=== PATIENT | female | born 2000 | race Caucasian/White ===

== ENCOUNTER 2023-05-28 22:52 | Emergency (ER) | payer OTHER, SELFPAY ==
--- NOTE | ~2023-05-28 | XR_ITS ---
EXAMINATION: XR FINGER, LEFT CLINICAL INFORMATION: Pain left third digit distal phalanx COMPARISON: None available. TECHNIQUE: 3 views of the left third digit. FINDINGS: The bones and soft tissues are normal. No fracture. Alignment is anatomic. Joint spaces are maintained. XR/XR finger LT min 2V IMPRESSION: Normal finger radiographs.
[2023-05-28 22:53] VITALS: BP 131/74; PULSE 90; RESP 18; TEMP 37.1; O2SAT 96; BMI 21.9
--- OUTSIDE RECORDS SUMMARY | 2023-05-29 00:01 | XMS_ITS | Continuity of Care Document ---
Author Name Unknown Organization [facility] Address [address] [place] [address]- Care Team Providers Care Primer Waterproofing Machine Adjuster Name Role Phone Catrachito ZAFAR, Tiana Neumann Primary Care Physician [facility] - 08/[facility]/21 [facility] [address] [place] [address]- Allergies, Adverse Reactions, Alerts No Known Medication Allergies Substance Reaction Severity Status NKA Active Immunizations Given and Recorded Vaccine Date Status Refusal Reason SARS-CoV-2 (COVID-19) mRNA BNT-162b2 vac 04/06/21 Recorded tetanus/diphtheria/pertussis, acel(Tdap) 07/22/19 Given tetanus/diphtheria/pertussis, acel(Tdap) 03/31/10 Recorded influenza virus vaccine, inactivated 07/22/19 Give n influenza virus vaccine, inactivated 06/19/14 Edouard rded influenza virus vaccine, inactivated 06/30/11 Edouard rded Human Papillomavirus Vaccine 12/18/14 Recorded Human Papillomavirus Vaccine 07/30/14 Recorded Human Papillomavirus Vaccine 06/19/14 Recorded Varicella Virus Vaccine 06/30/11 Recorded Varicella Virus Vaccine 05/15/00 Recorded Poliovirus Vaccine, Inactivated 06/18/03 Recorded Poliovirus Vaccine, Inactivated 05/15/00 Recorded Poliovirus Vaccine, Inactivated 99 Recorded Poliovirus Vaccine, Inactivated 99 Recorded Measles/Mumps/Rubella Virus Vaccine 06/18/03 Recor ded Measles/Mumps/Rubella Virus Vaccine 09/14/01 Recor ded diphtheria/tetanus/pertussis, acel(DTaP) 06/18/03 Recorded diphtheria/tetanus/pertussis, acel(DTaP) 09/14/01 Recorded diphtheria/tetanus/pertussis, acel(DTaP) 99 Recorded diphtheria/tetanus/pertussis, acel(DTaP) 99 Recorded diphtheria/tetanus/pertussis, acel(DTaP) 99 Recorded hepatitis B pediatric vaccine 09/14/01 Recorded hepatitis B pediatric vaccine 02/13/00 Recorded hepatitis B pediatric vaccine 99 Recorded Haemophilus B conjugate (HbOC) vaccine 09/14/01 Re corded Haemophilus B conjugate (HbOC) vaccine 99 Re corded Haemophilus B conjugate (HbOC) vaccine 99 Re corded Haemophilus B conjugate (HbOC) vaccine 99 Re corded pneumococcal 13-valent vaccine 05/28/00 Recorded Medications hydrOXYzine hydrochloride 25 mg oral tablet 1 tablet = 25 mg, By Mouth, 3 times a day, PRN for anxiety, # 40 tablet, 2 Refills, Maintenance, 04/26/21 16:51:00 EDT, Tablet, [id number], Partial fill upon patient request if the prescription is for a schedule II opioid drug., 158, cm, 04/26... Start Date: 04/26/21 Status: Ordered medroxyPROGESTERone 150 mg/mL intramuscular suspension = 150 mg, Intramuscular, Once, Please bring injection in package to primary care nurse appt each month for injection., # 1 mL, 11 Refills, Soft Stop, 08/03/21 8:59:00 EDT, [id number], Partialfill upon patient request if the prescription is fo... Start Date: 08/03/21 Status: Ordered [place] 30 mcg-0.15 mg oral tablet 1 tablet, By Mouth, Daily, # 84 tablet, 3 Refills, Maintenance, 07/27/21 11:05:00 EDT, Tablet, [facility], 1 tablet By Mouth Daily,x84 days, 158, cm, 07/15/21 15:25:00 EDT, Height, 57, kg, 10/07/19 8:45:00 EST, Dry Weight Start Date: 07/27/21 Stop Date: 06/28/22 Status: Ordered Problem List Condition Effective Dates Status Health Status Inform ant Anxiety(Confirmed) Active Depression(Confirmed) Active Family history of congenital anomaly of cardiovascular system(Confirmed) Active hx of Heart palpitations(Confirmed) Active Blood type, Rh negative(Confirmed) Active Social History Social History Type Response Smoking Status Never smoker entered on: 12/22/16 Sex
--- OUTSIDE RECORDS SUMMARY | 2023-05-29 00:01 | XMS_ITS | Continuity of Care Document ---
Author Name Unknown Organization [facility] Address [address] [place] [address]- Care Team Providers Care Horse Show Judge Name Role Phone Catrachito ZAFAR, Tiana Neumann Primary Care Physician [facility]20 - [facility]11/20 [facility] [address] [place] [address]- [facility] Allergies, Adverse Reactions, Alerts No Known Medication Allergies Substance Reaction Severity Status NKA Active Immunizations Given and Recorded Vaccine Date Status Refusal Reason tetanus/diphtheria/pertussis, acel(Tdap) 07/22/19 Given tetanus/diphtheria/pertussis, acel(Tdap) 03/31/10 Recorded influenza virus vaccine, inactivated 07/22/19 Give n influenza virus vaccine, inactivated 06/19/14 Edouard rded Human Papillomavirus Vaccine 12/18/14 Recorded Human Papillomavirus Vaccine 07/30/14 Recorded Human Papillomavirus Vaccine 06/19/14 Recorded Varicella Virus Vaccine 06/30/11 Recorded Varicella Virus Vaccine 05/15/00 Recorded Measles/Mumps/Rubella Virus Vaccine 06/18/03 Recor ded Measles/Mumps/Rubella Virus Vaccine 09/14/01 Recor ded Poliovirus Vaccine, Inactivated 06/18/03 Recorded Poliovirus Vaccine, Inactivated 05/15/00 Recorded Poliovirus Vaccine, Inactivated 99 Recorded Poliovirus Vaccine, Inactivated 99 Recorded diphtheria/tetanus/pertussis, acel(DTaP) 06/18/03 Recorded diphtheria/tetanus/pertussis, acel(DTaP) 09/14/01 Recorded diphtheria/tetanus/pertussis, acel(DTaP) 99 Recorded diphtheria/tetanus/pertussis, acel(DTaP) 99 Recorded diphtheria/tetanus/pertussis, acel(DTaP) 99 Recorded Haemophilus B conjugate (HbOC) vaccine 09/14/01 Re corded Haemophilus B conjugate (HbOC) vaccine 99 Re corded Haemophilus B conjugate (HbOC) vaccine 99 Re corded Haemophilus B conjugate (HbOC) vaccine 99 Re corded hepatitis B pediatric vaccine 09/14/01 Recorded hepatitis B pediatric vaccine 02/13/00 Recorded hepatitis B pediatric vaccine 99 Recorded pneumococcal 13-valent vaccine 05/28/00 Recorded Medications [place] 30 mcg-0.15 mg oral tablet 1 tablet, By Mouth, Daily, # 84 tablet, 3 Refills, Maintenance, 11/18/19 13:25:00 EST, Tablet, [facility], 1 tablet By Mouth Daily,x84 days, 158, cm, 11/18/19 13:02:00 EST, Height, 57, kg, 10/07/19 8:45:00 EST, Dry Weight Start Date: 11/18/19 Stop Date: 10/19/20 Status: Ordered Problem List Condition Effective Dates Status Health Status Inform ant Anxiety(Confirmed) Active Depression(Confirmed) Active Family history of congenital anomaly of cardiovascular system(Confirmed) Active hx of Heart palpitations(Confirmed) Active Blood type, Rh negative(Confirmed) Active Social History Social History Type Response Smoking Status Never smoker entered on: 12/22/16 Sex
--- OUTSIDE RECORDS SUMMARY | 2023-05-29 00:01 | XMS_ITS | Continuity of Care Document ---
Author Name Unknown Organization [facility] Address [address] [place] [address]- Care Team Providers Care Tool Designer Name Role Phone Catrachito WEB DESIGNER DEVELOPER, Tiana Neumann Primary Care Physician [facility] Date(s): 09/05/19 - 11/16/19 [facility] BALANCING MACHINE OPERATOR [address] [place] [address]- [facility] Attending Physician: Paz Goldberg MD Allergies, Adverse Reactions, Alerts No Known Medication [...] Recorded pneumococcal 13-valent vaccine 05/28/00 Recorded Medications Multivitamins By Mouth, Daily, 0 Refills, Maintenance, 02/26/19 10:09:37 EDT Start Date: 02/26/19 Status: Ordered Problem List Condition Effective Dates Status Health Status Inform ant care(Confirmed) Active Anxiety(Confirmed) Active Depression(Confirmed) Active Family history of congenital anomaly of cardiovascular system(Confirmed) Active complicated by umb ilical cord varix, antepartum(Confirmed) Active Abnormal glucose tolerance i n (Confirmed) Active hx of Heart palpitations(Confirmed) Active (Confirmed) 1 12/15/18 Active (Confirmed) Active Blood type, Rh negative(Confirmed) Active 1chart review Social History Social History Type Response Smoking Status Never smoker entered on: 12/22/16 Sex
--- OUTSIDE RECORDS SUMMARY | 2023-05-29 00:01 | XMS_ITS | Continuity of Care Document ---
Author Name Unknown Organization [facility] Address [address] [place] [address]- Care Team Providers Care Watch Supervisor Name Role Phone Catrachito ZAFAR, Tiana Neumann Primary Care Physician [facility]): 12/21/20 - 01/20/21 [facility] [address] [place] [address]- Allergies, Adverse Reactions, Alerts No Known Medication [...] corded pneumococcal 13-valent vaccine 05/28/00 Recorded Medications Megan 30 mcg-0.15 mg oral tablet 1 tablet, By Mouth, Daily, # 84 tablet, 3 Refills, Maintenance, 12/21/20 14:36:00 EST, Tablet, [facility], 1 tablet By Mouth Daily,x84 days, 158, cm, 05/13/20 9:06:00 EDT, Height, 57, kg, 10/07/19 8:45:00 EST, Dry Weight Start Date: 12/21/20 Stop Date: 11/22/21 Status: Ordered Problem List Condition Effective Dates Status Health Status Inform ant Anxiety(Confirmed) Active Depression(Confirmed) Active Family history of congenital anomaly of cardiovascular system(Confirmed) Active hx of Heart palpitations(Confirmed) Active Blood type, Rh negative(Confirmed) Active Social History Social History Type Response Smoking Status Never smoker entered on: 12/22/16 Sex
--- OUTSIDE RECORDS SUMMARY | 2023-05-29 00:01 | XMS_ITS | Continuity of Care Document ---
Author Name Unknown Organization [facility] Address [address] [place] [address]- Care Team Providers Care Food Expeditor Name Role Phone Catrachito ZAFAR, Tiana Neumann Primary Care Physician [facility] Date[facility]s): 10/17/19 - 10/27/[facility] [address] [place] [address]- [facility] Attending Physician: Denia Anaya Admitting Physician: Denia Anaya Referring Physician: AdmtrDenia Allergies, Adverse Reactions, Alerts No Known Medication [...]
--- OUTSIDE RECORDS SUMMARY | 2023-05-29 00:01 | XMS_ITS | Continuity of Care Document ---
Author Name Unknown Organization [facility] Address [address] [place] [address]- Care Team Providers Care Inspector Set Up And Lay Out Name Role Phone Catrachito POST SECONDARY PROFESSIONAL, Tiana Neumann Primary Care Physician [facility] Date(s): 11/18/19 - 11/28/19 [facility] PEELED POTATO INSPECTOR [address] [place] [address]- [facility] Attending Physician: Denia Anaya Admitting Physician: Denia [...] Recorded pneumococcal 13-valent vaccine 05/28/00 Recorded Medications Megan [...]
--- OUTSIDE RECORDS SUMMARY | 2023-05-29 00:02 | XMS_ITS | Continuity of Care Document ---
Author Name Unknown Organization [facility] Address [address] [place] [address]- Care Team Providers Care Stenotypist Name Role Phone Catrachito ZAFAR, Tiana Neumann Primary Care Physician [facility]s): 05/17/20 - 06/16/20 [facility] [address] [place] [address]- [facility] Allergies, Adverse Reactions, Alerts No Known Medication [...] Recorded pneumococcal 13-valent vaccine 05/28/00 Recorded Medications [place] 30 mcg-0.15 mg oral tablet 1 tablet, [...]
--- OUTSIDE RECORDS SUMMARY | 2023-05-29 00:02 | XMS_ITS | Continuity of Care Document ---
Author Name Unknown Organization [facility] Address [address] [place] [address]- Care Team Providers Care Railroad Switchman Name Role Phone Catrachito ZAFAR, Tiana Neumann Primary Care Physician [facility]s): 09/19/19 - 11/16/19 [facility] [address] [place] [address]- [facility] Attending Physician: Not on Staff, Attending MD Referring Physician: Paz Goldberg MD Allergies, Adverse Reactions, [...]
--- OUTSIDE RECORDS SUMMARY | 2023-05-29 00:02 | XMS_ITS | Continuity of Care Document ---
Author Name Unknown Organization [facility] Address [address] [place] [address]- Care Team Providers Care Admissions Supervisor Name Role Phone Catrachito ZAFAR, Tiana Neumann Primary Care Physician Unava ilable [place] [facility] Date(s): 04/24/22 - 05/01/22 [facility] [address] [place] [address]- Encounter Diagnosis URI (upper respiratory infection)(Discharge Diagnosis) - 04/24/22 Bilateral conjunctivitis(Discharge Diagnosis) - 04/24/22 Attending Physician: Natalie Mejia Referring Physician: Tiana Winston NP Allergies, Adverse Reactions, Alerts No Known Allergies Immunizations Given and Recorded Vaccine Date Status [...] corded pneumococcal 13-valent vaccine 05/28/00 Recorded Medications Depo-Provera Contraceptive 150 mg/mL intramuscular suspension 1 mL = 150 mg, Intramuscular, Every 3 months, # 1 mL, 0 Refills, Maintenance, 02/27/22 9:02:00 EDT,Suspension, [facility]/pharmacy #[id number], Partial fill upon patient request if the prescription is for a schedule II opioid drug., 158, cm, 12/09/21 9:34:00 EST,... Start Date: 02/27/22 Status: Ordered Depo-Provera Contraceptive 150 mg/mL intramuscular suspension 1 mL = 150 mg, Intramuscular, Every 3 months, # 1 mL, 1 Refills, Maintenance, 02/27/22 10:52:00 EDT, Suspension, [facility]/pharmacy #[id number], Partial fill upon patient request if the prescription is for a schedule II opioid drug., 158, cm, 12/09/21 9:34:00 EST... Start Date: 02/27/22 Stop Date: 08/26/22 Status: Ordered erythromycin 0.5% ophthalmic ointment See Instructions, APPLY 1/2 INCHESIN BOTH EYES, 2 TIMES A DAY,X10 DAYS, # 3.5 Gm, 0 Refills, [id number], 10, APPLY 1/2 INCHESIN BOTH EYES, 2 TIMES A DAY,X10 DAYS, 158, cm, 04/24/22 10:43:00 EDT,Height, 44.8, kg, 02/24/22 11:27:00 EDT, Dry Weight Start Date: 05/01/22 Status: Ordered hydrOXYzine hydrochloride 25 mg oral tablet 1 tablet = 25 mg, By Mouth, 3 times a day, PRN for anxiety, # 40 tablet, 2 Refills, Maintenance, 04/26/21 16:51:00 EDT, Tablet, [facility]/pharmacy #2024, Partial fill upon patient request if the prescription is for a schedule II opioid drug., 158, cm, 04/26... Start Date: 04/26/21 Status: Ordered Megan 30 mcg-0.15 mg oral tablet 1 tablet, By Mouth, Daily, # 84 tablet, 3 Refills, Maintenance, 12/09/21 9:59:00 EST, Tablet, [facility]/pharmacy #2024, 1 tablet By Mouth Daily,x84 days, 158, cm, 12/09/21 9:34:00 EST, Height Start Date: 12/09/21 Stop Date: 11/10/22 Status: Ordered Problem List Condition Effective Dates Status Health Status Inform ant Anxiety(Confirmed) Active Depression(Confirmed) Active Family history of congenital anomaly of cardiovascular system(Confirmed) Active hx of Heart palpitations(Confirmed) Active Blood type, Rh negative(Confirmed) Active Diagnosis Diagnosis Type Effective Dates Health Status Clinical Service Informant URI (upper respiratory infection) Discharge Diagnosis 04/24/22 Bilateral conjunctivitis Discharge Diagnosis 04/24/22 Vital Signs Most recent to oldest [Reference Range]: 1 Height 158 cm (04/24/22 10:43 AM) Oxygen Saturation [94-100 %] 99 % (04/24/22 10:43 AM) Pulse Rate [55-90 bpm] 105 bpm *H* (04/24/22 10:43 AM) Blood Pressure [90-138/55-84 mm Hg] 100/ 70mm Hg (04/24/22 10:43 AM) Respiratory Rate [16-30 br/min] 16 br/mi n (04/24/22 10:43 AM) Temperature [96.8-100.4 DegF] 97.9 DegF (04/24/22 10:43 AM) Mode of Delivery (Oxygen) Room air (04/24/22 10:43 AM) Blood pressure sites Arm, right (04/24/22 10:43 AM) Temperature Route Temporal (04/24/22 10:43 AM) Social History Social History Type Response Smoking Status Never smoker entered on: 12/22/16 Sex
--- OUTSIDE RECORDS SUMMARY | 2023-05-29 00:02 | XMS_ITS | Continuity of Care Document ---
Author Name Unknown Organization [facility] Address [address] [place] [address]- Care Team Providers Care Dermatology Technician Name Role Phone Catrachito ZAFAR, Tiana Neumann Primary Care Physician [place] [facility] [place] 11/28/21 - 12/28/21 [facility] [address] [place] [address]- Allergies, Adverse Reactions, Alerts No Known Allergies [...] 2 Refills, Maintenance, 04/26/21 16:51:00 EDT, Tablet, [facility]/pharmacy #2025, Partial fill upon patient request if the prescription is for a schedule II opioid drug., 158, cm, 04/26... Start Date: 04/26/21 Status: Ordered Megan 30 mcg-0.15 mg oral tablet 1 tablet, By Mouth, Daily, # 84 tablet, 3 Refills, Maintenance, 12/09/21 9:59:00 EST, Tablet, [facility], 1 tablet By [...]
--- OUTSIDE RECORDS SUMMARY | 2023-05-29 00:02 | XMS_ITS | Continuity of Care Document ---
Author Name Unknown Organization [facility] Address [address] [place] [address]- Care Team Providers Care Paid Search Marketing Analyst Name Role Phone Catrachito ZAFAR, Tiana Neumann Primary Care Physician [facility]): 05[facility]16[facility]21 - 06/15/21 [facility] [address] [place] [address]- Allergies, Adverse Reactions, Alerts No Known Medication [...] Refills, Maintenance, 04/26/21 16:51:00 EDT, Tablet, [facility], Partial fill upon patient request if the prescription is for a schedule II opioid drug., 158, cm, 04/26... Start Date: 04/26/21 Status: Ordered [place] 30 mcg-0.15 mg oral tablet 1 tablet, By Mouth, Daily, # 84 tablet, 3 Refills, Maintenance, 05/17/21 10:24:00 EDT, Tablet, [facility], 1 tablet By Mouth Daily,x84 days, 158, cm, 05/11/21 8:04:00 EDT, Height, 57, kg, 10/07/19 8:45:00 EST, Dry Weight Start Date: 05/17/21 Stop Date: 04/18/22 Status: Ordered Problem List Condition Effective Dates Status Health Status Inform ant Anxiety(Confirmed) Active Depression(Confirmed) Active Family history of congenital anomaly of cardiovascular system(Confirmed) Active hx of Heart palpitations(Confirmed) Active Blood type, Rh negative(Confirmed) Active Social History Social History Type Response Smoking Status Never smoker entered on: 12/22/16 Sex
--- OUTSIDE RECORDS SUMMARY | 2023-05-29 00:02 | XMS_ITS | Continuity of Care Document ---
Author Name Unknown Organization [facility] Address [address] [place] [address]- Care Team Providers Care Executive Asst Name Role Phone Catrachito ZAFAR, Tiana Neumann Primary Care Physician Unava ilable [facility]s): 05/03/22 - 08/31/22 [facility] [address] [place] [address]- Attending Physician: Not on Staff, Attending MD Allergies, Adverse Reactions, Alerts No Known Allergies [...] mL, 0 Refills, Maintenance, 02/27/22 9:02:00 EDT,Suspension, [facility]/pharmacy #[id number], Partial fill upon patient request if the prescription is for a schedule II opioid drug., 158, cm, 12/09/21 9:34:00 EST,... Start Date: 02/27/22 Status: Ordered Depo-Provera Contraceptive 150 mg/mL intramuscular suspension 1 mL = 150 mg, Intramuscular, Every 3 months, # 1 mL, 1 Refills, Maintenance, 02/27/22 10:52:00 EDT, Suspension, [facility]/pharmacy #[id number], Partial fill upon patient request if the prescription is for a schedule II opioid drug., 158, cm, 12/09/21 9:34:00 EST... Start Date: 02/27/22 Stop Date: 08/26/22 Status: Ordered erythromycin 0.5% ophthalmic ointment See Instructions, APPLY 1/2 INCHESIN BOTH EYES, 2 TIMES A DAY,X10 DAYS, # 3.5 Gm, 0 Refills, [facility] [id number], 10, APPLY 1/2 INCHESIN BOTH EYES, 2 [...] Refills, Maintenance, 12/09/21 9:59:00 EST, Tablet, [facility], 1 tablet By Mouth Daily,x84 days, 158, cm, 12/09/21 9:34:00 EST, Height Start Date: 12/09/21 Stop Date: 11/10/22 Status: Ordered Problem List Condition Confirmation Course Effective Dates Status H ealth Status Informant Anxiety Confirmed Active Depression Confirmed Active Family history of congenital anomaly of cardiovascular system Confirmed Active hx of Heart palpitations Confirmed Active Blood type, Rh negative Confirmed Active Social History Social History Type Response Smoking Status Never smoker entered on: 12/22/16 Sex Patient Care team information Care Team Personnel Name: Catrachito ZAFAR, Tiana Neumann Position: [facility] PCO Associate Professional Member Role: PCP Care Team Related Persons Name: MADAN WALTERS Address: [address] Name: HARRISON WALTERS Address: [address] Name: SHAE REYNOLDS Address: [employer] Address: home [address] [place] [id number] [place]
--- OUTSIDE RECORDS SUMMARY | 2023-05-29 00:02 | XMS_ITS | Continuity of Care Document ---
Author Name Unknown Organization [facility] Address [address] [place] [address]- Care Team Providers Care Eyelet Riveter Name Role Phone Catrachito ZAFAR, Tiana Neumann Primary Care Physician [facility]20 - 06/12/20 [facility] [address] [place] [address]- [facility] Attending Physician: Denia Anaya Admitting Physician: AdmtrDenia Referring Physician: Admtr, Ar8 Allergies, Adverse Reactions, Alerts No Known Medication [...]
--- OUTSIDE RECORDS SUMMARY | 2023-05-29 00:02 | XMS_ITS | Continuity of Care Document ---
Author Name Unknown Organization [facility] Address [address] [place] [address]- Care Team Providers Care Desktop Administrator Name Role Phone Maddie Rouse NP Primary Care Physician [phone] [place] [facility] [place] 11/14/22 - 12/14/22 [facility] [address] [place] [address]- Attending Physician: Denia Anaya Admitting Physician: AdmDenia claire Referring Physician: AdmtrDenia Allergies, Adverse Reactions, Alerts No Known Allergies [...] mL, 0 Refills, Maintenance, 02/27/22 9:02:00 EDT,Suspension, [facility]/pharmacy #[id number], Partial fill upon patient request if the prescription is for a schedule II opioid drug., 158, cm, 12/09/21 9:34:00 EST,... Start Date: 02/27/22 Status: Ordered Depo-Provera Contraceptive 150 mg/mL intramuscular suspension 1 mL = 150 mg, Intramuscular, Every 3 months, # 1 mL, 1 Refills, Maintenance, 02/27/22 10:52:00 EDT, Suspension, [facility]/pharmacy #[id number], Partial fill upon patient request if the prescription is for a schedule II opioid drug., 158, cm, 12/09/21 9:34:00 EST... Start Date: 02/27/22 Stop Date: 08/26/22 Status: Ordered erythromycin 0.5% ophthalmic ointment See Instructions, APPLY 1/2 INCHESIN BOTH EYES, 2 TIMES A DAY,X10 DAYS, # 3.5 Gm, 0 Refills, [facility] 527[facility], 10, APPLY 1/2 INCHESIN BOTH EYES, 2 [...] Status Never smoker entered on: 12/22/16 Sex Note * Event Display: Non BH Lab Results Authored Date: * Event Display: Non BH Lab Results Authored Date: Patient Care team information Care Team Personnel Name: Maddie Rouse NP Position: [facility] Outreach Member Role: PCP Address: Address: [address] [place] [address] [facility] [place] [place] [address] Care Team Related Persons Name: MADAN WALTERS Address: home [address], [place] Name: HARRISON WALTERS Address: home [address], [place] Name: SHAE REYNOLDS Address: [employer] Address: home [address] [place] [address]
--- OUTSIDE RECORDS SUMMARY | 2023-05-29 00:02 | XMS_ITS | Continuity of Care Document ---
Author Name Unknown Organization [facility] Address [address] [place] [address]- Care Team Providers Care Lard Mixer Name Role Phone Catrachito DIGITAL MARKETING CONSULTANT, Tiana Neumann Primary Care Physician Unava ilable [facility] - 06/15/[address] [facility] [address] [place] [address]- Allergies, Adverse Reactions, Alerts No Known Allergies [...] mL, 0 Refills, Maintenance, 02/27/22 9:02:00 EDT,Suspension, [facility]/pharmacy #[id number], Partial fill upon patient request if the prescription is for a schedule II opioid drug., 158, cm, 12/09/21 9:34:00 EST,... Start Date: 02/27/22 Status: Ordered Depo-Provera Contraceptive 150 mg/mL intramuscular suspension 1 mL = 150 mg, Intramuscular, Every 3 months, # 1 mL, 1 Refills, Maintenance, 02/27/22 10:52:00 EDT, Suspension, [facility]/pharmacy #[id number], Partial fill upon patient request if the prescription is for a schedule II opioid drug., 158, cm, 12/09/21 9:34:00 EST... Start Date: 02/27/22 Stop Date: 08/26/22 Status: Ordered erythromycin 0.5% ophthalmic ointment See Instructions, APPLY 1/2 INCHESIN BOTH EYES, 2 TIMES A DAY,X10 DAYS, # 3.5 Gm, 0 Refills, [facility] STORE 83240, 10, APPLY 1/2 INCHESIN BOTH EYES, 2 [...] Status Never smoker entered on: 12/22/16 Sex Care Team Personnel Name: Catrachito ZAFAR, Tiana Neumann
--- OUTSIDE RECORDS SUMMARY | 2023-05-29 00:02 | XMS_ITS | Continuity of Care Document ---
Author Name Unknown Organization [facility] Address [address] [place] [address]- Care Team Providers Care Equipment Detailer Name Role Phone Catrachito PRESS SET UP PERSON, Tiana Neumann Primary Care Physician [facility]): 12[facility]07/21 - 01/06/22 [facility] [address] [place] [address]- Allergies, Adverse Reactions, Alerts No Known Allergies [...] 2 Refills, Maintenance, 04/26/21 16:51:00 EDT, Tablet, [facility]/pharmacy #[id number], Partial fill upon patient request if the prescription is for a schedule II opioid drug., 158, cm, 04/26... Start Date: 04/26/21 Status: Ordered [place] 30 mcg-0.15 mg oral tablet 1 tablet, [...]
--- OUTSIDE RECORDS SUMMARY | 2023-05-29 00:02 | XMS_ITS | Continuity of Care Document ---
Author Name Unknown Organization [facility] Address [address] [place] [address]- Care Team Providers Care Director Of Federal Sales Name Role Phone Maddie Rouse NP Primary Care Physician [id number] Date[facility]07[facility]23 - 05/27/23 [facility] [address] [place] [address]- Attending Physician: Not on Staff, Attending MD [...] mL, 0 Refills, Maintenance, 02/27/22 9:02:00 EDT,Suspension, [facility]/pharmacy #[id number], Partial fill upon patient request if the prescription is for a schedule II opioid drug., 158, cm, 12/09/21 9:34:00 EST,... Start Date: 02/27/22 Status: Ordered Depo-Provera Contraceptive 150 mg/mL intramuscular suspension 1 mL = 150 mg, Intramuscular, Every 3 months, # 1 mL, 1 Refills, Maintenance, 02/07/23 15:55:00 EDT, Suspension, [facility]/pharmacy #[id number], Partial fill upon patient request if the prescription is for a schedule II opioid drug., 158, cm, 11/22/22 16:52:00 ES... Start Date: 02/07/23 Stop Date: 08/06/23 Status: Ordered erythromycin 0.5% ophthalmic ointment See Instructions, APPLY 1/2 INCHESIN BOTH EYES, 2 TIMES A DAY,X10 DAYS, # 3.5 Gm, 0 Refills, [facility] STORE 35227, 10, APPLY 1/2 INCHESIN BOTH EYES, 2 TIMES A DAY,X10 DAYS, 158malika, 04/24/22 10:43:00 EDT,Height, 44.8, kg, 02/24/22 11:27:00 [...] Team Personnel Name: Maddie Rouse NP Position: [facility] Outreach Member Role: PCP Address: Address: [address] [place] [address] [facility] [place], [place] [address] Care Team Related Persons Name: MADAN WALTERS Address: home [address] [place] [address] Name: HARRISON WALTERS Address: home [address] [place] [address] Name: SHAE REYNOLDS Address: [place] Address: [place] [address]
--- OUTSIDE RECORDS SUMMARY | 2023-05-29 00:02 | XMS_ITS | Continuity of Care Document ---
Author Name Unknown Organization [facility] Address [address] [place] [address]- Care Team Providers Care Estimator Lumber Name Role Phone Catrachito AUTOMOTIVE PAINTER, Tiana Neumann Primary Care Physician Unava ilable [facility]s): 02/24/22 - 03/26/22 [facility] [address] [place] [address]- Allergies, Adverse Reactions, Alerts No Known Allergies [...] mL, 0 Refills, Maintenance, 02/27/22 9:02:00 EDT,Suspension, [facility]/pharmacy #[id number], Partial fill upon patient request if the prescription is for a schedule II opioid drug., 158, malika, 12/09/21 9:34:00 EST,... Start Date: 02/27/22 Status: Ordered Depo-Provera Contraceptive 150 mg/mL intramuscular suspension 1 mL = 150 mg, Intramuscular, Every 3 months, # 1 mL, 1 Refills, Maintenance, 02/27/22 10:52:00 EDT, Suspension, [facility]/pharmacy #[id number], Partial fill upon patient request if the prescription is for a schedule II opioid drug., 158, malika, 12/09/21 9:34:00 EST... Start Date: 02/27/22 Stop Date: 08/26/22 Status: Ordered hydrOXYzine hydrochloride 25 mg oral tablet 1 tablet = 25 mg, By Mouth, 3 times a day, PRN for anxiety, # 40 tablet, 2 Refills, Maintenance, 04/26/21 16:51:00 EDT, Tablet, [facility]/pharmacy #2020, Partial fill upon patient request if the prescription is for a schedule II opioid drug., 158, malika, 04/26... Start Date: 04/26/21 Status: Ordered [place] 30 mcg-0.15 mg oral tablet 1 tablet, By Mouth, Daily, # 84 tablet, 3 Refills, Maintenance, 12/09/21 9:59:00 EST, Tablet, [facility], 1 tablet By Mouth Daily,x84 days, 158, [...]
--- OUTSIDE RECORDS SUMMARY | 2023-05-29 00:02 | XMS_ITS | Continuity of Care Document ---
Author Name Unknown Organization [facility] Address [address] [place] [address]- Care Team Providers Care General Ledger Bookkeeper Name Role Phone Catrachito ZAFAR, Tiana Neumann Primary Care Physician [facility] Date[facility]s): 03/04/21 - 04/03/21 [facility] [address] [place] [address]- Allergies, Adverse Reactions, Alerts No Known Medication [...] corded pneumococcal 13-valent vaccine 05/28/00 Recorded Medications [place] 30 mcg-0.15 mg oral tablet 1 tablet, By Mouth, Daily, # 84 tablet, 3 Refills, Maintenance, 03/04/21 13:32:00 EDT, Tablet, [id number], 1 tablet By Mouth Daily,x84 days, 158, cm, 05/13/20 9:06:00 EDT, Height, 57, kg, 10/07/19 8:45:00 EST, Dry Weight Start Date: 03/04/21 Stop Date: 02/03/22 Status: Ordered Problem List Condition Effective Dates Status Health Status Inform ant Anxiety(Confirmed) Active Depression(Confirmed) Active Family history of congenital anomaly of cardiovascular system(Confirmed) Active hx of Heart palpitations(Confirmed) Active Blood type, Rh negative(Confirmed) Active Social History Social History Type Response Smoking Status Never smoker entered on: 12/22/16 Sex
--- OUTSIDE RECORDS SUMMARY | 2023-05-29 00:03 | XMS_ITS | Continuity of Care Document ---
Author Name Unknown Organization [facility] Address [address] [place] [address]- Care Team Providers Care Taping Foreman Name Role Phone Maddie Rouse NP Primary Care Physician [phone] [id number] Date(s): 11/22/22 - 11/29/22 [facility] [address] [place] [address]- Attending Physician: Not on Staff, Attending MD [...] mL, 0 Refills, Maintenance, 02/27/22 9:02:00 EDT,Suspension, [facility]/pharmacy #[id number], Partial fill upon patient request if the prescription is for a schedule II opioid drug., 158, cm, 12/09/21 9:34:00 EST,... Start Date: 02/27/22 Status: Ordered Depo-Provera Contraceptive 150 mg/mL intramuscular suspension 1 mL = 150 mg, Intramuscular, Every 3 months, # 1 mL, 1 Refills, Maintenance, 02/27/22 10:52:00 EDT, Suspension, [facility]/pharmacy #[id number], Partial fill upon patient request if the prescription is for a schedule II opioid drug., 158, cm, 12/09/21 9:34:00 EST... Start Date: 02/27/22 Stop Date: 08/26/22 Status: Ordered erythromycin 0.5% ophthalmic ointment See Instructions, APPLY 1/2 INCHESIN BOTH EYES, 2 TIMES A DAY,X10 DAYS, # 3.5 Gm, 0 Refills, [facility] STORE 35355, 10, APPLY 1/2 INCHESIN BOTH EYES, 2 [...] Active Blood type, Rh negative Confirmed Active Vital Signs Most recent to oldest [Reference Range]: 1 Height 158 cm (11/22/22 4:52 PM) Weight 50.4 kg (11/22/22 4:52 PM) Body Mass Index [18.5-24.99 kg/m2] 20.19 kg/m2 (11/22/22 4:52 PM) Blood Pressure [90-138/55-84 mm Hg] 108/ 64mm Hg (11/22/22 4:52 PM) Blood pressure sites Arm, left (11/22/22 4:52 PM) Weight Obtained Via Standing scale (11/22/22 4:52 PM) Social History Social History Type Response Smoking Status Never smoker entered on: 12/22/16 Sex Patient Care team information Care Team Personnel Name: Maddie Rouse NP Position: S Outreach Member Role: PCP Address: Address: [address] [place] [address] [place] [address]- Care Team Related Persons Name: MADAN WALTERS Address: home [address] [place], [place] Name: HARRISON WALTERS Address: home [address] [place], [place] Name: SHAE REYNOLDS Address: [place] Address: home [address] [place] [address]
--- OUTSIDE RECORDS SUMMARY | 2023-05-29 00:03 | XMS_ITS | Continuity of Care Document ---
Author Name Unknown Organization [facility] Address [address] [place] [address]- Care Team Providers Care Public Utilities Sales Representative Name Role Phone Maddie Rouse NP Primary Care Physician Encounter [place] Date(s): 04/27/23 - 05/27/23 [facility] [address] [place] [address]- Attending Physician: AdmDenia claire Admitting Physician: AdmtrDenia Referring Physician: Admtr, ArAl Allergies, Adverse Reactions, Alerts No Known Allergies [...] mL, 0 Refills, Maintenance, 02/27/22 9:02:00 EDT,Suspension, [facility]/pharmacy #[id number], Partial fill upon patient request if the prescription is for a schedule II opioid drug., 158, cm, 12/09/21 9:34:00 EST,... Start Date: 02/27/22 Status: Ordered Depo-Provera Contraceptive 150 mg/mL intramuscular suspension 1 mL = 150 mg, Intramuscular, Every 3 months, # 1 mL, 1 Refills, Maintenance, 02/07/23 15:55:00 EDT, Suspension, [facility]/pharmacy #[id number], Partial fill upon patient request if the prescription is for a schedule II opioid drug., 158, cm, 11/22/22 16:52:00 ES... Start Date: 02/07/23 Stop Date: 08/06/23 Status: Ordered erythromycin 0.5% ophthalmic ointment See Instructions, APPLY 1/2 INCHESIN BOTH EYES, 2 TIMES A DAY,X10 DAYS, # 3.5 Gm, 0 Refills, [facility] STORE 15700, 10, APPLY 1/2 INCHESIN BOTH EYES, 2 [...] Team Personnel Name: Maddie Rouse NP Position: [facility] Outreach Member Role: PCP Address: Address: [address] [place] [address] [place] [address]- Care Team Related Persons Name: MADAN WALTERS Address: home [address] [place], [place] Name: HARRISON WALTERS Address: home [address] [place], [place] Name: SHAE REYNOLDS Address: [place] Address: home [address] [place] [address] [place]
--- OUTSIDE RECORDS SUMMARY | 2023-05-29 00:03 | XMS_ITS | Continuity of Care Document ---
Author Name Unknown Organization [facility] Address [address] [place] [address]- Care Team Providers Care Acid Splicer Name Role Phone Catrachito ZAFAR, Tiana Neumann Primary Care Physician [facility]s): 09/15/20 - 10/15/20 [facility] [address] [place] [address]- Allergies, Adverse Reactions, Alerts No Known Medication [...] Daily, # 84 tablet, 3 Refills, Maintenance, 09/30/20 8:37:00 EST, Tablet, [id number], 1 tablet By Mouth Daily,x84 days, 158, cm, 05/13/20 9:06:00 EDT, Height, 57, kg, 10/07/19 8:45:00 EST, Dry Weight Start Date: 09/30/20 Stop Date: 09/01/21 Status: Ordered Problem List Condition Effective Dates Status Health Status Inform ant Anxiety(Confirmed) Active Depression(Confirmed) Active Family history of congenital anomaly of cardiovascular system(Confirmed) Active hx of Heart palpitations(Confirmed) Active Blood type, Rh negative(Confirmed) Active Social History Social History Type Response Smoking Status Never smoker entered on: 12/22/16 Sex
--- OUTSIDE RECORDS SUMMARY | 2023-05-29 00:03 | XMS_ITS | Continuity of Care Document ---
Author Name Unknown Organization [facility] Address [address] [place] [address]- Care Team Providers Care Dean Of Men Name Role Phone Catrachito ZAFAR, Tiana Neumann Primary Care Physician [facility]s): 11/24/21 - 12/24/21 [facility] [address] [place], [place] [address] Allergies, Adverse Reactions, Alerts No Known Allergies [...] 2 Refills, Maintenance, 04/26/21 16:51:00 EDT, Tablet, [facility]/pharmacy #[id number], Partial fill upon patient request if [...]
--- OUTSIDE RECORDS SUMMARY | 2023-05-29 00:03 | XMS_ITS | Continuity of Care Document ---
Author Name Unknown Organization [facility] Address [address] [place] [address]- Care Team Providers Care Shell Sorter Name Role Phone Catrachito ZAFAR, Tiana Neumann Primary Care Physician Encounter [facility] Date(s): 08/03/21 - 09/23/21 [facility] [address] [place] [address]- Attending Physician: Not on Staff, Attending MD [...] is fo... Start Date: 08/03/21 Status: Ordered [place] 30 mcg-0.15 mg oral tablet 1 tablet, By Mouth, Daily, # 84 tablet, 3 Refills, Maintenance, 09/13/21 9:26:00 EST, Tablet, [facility], 1 tablet By Mouth Daily,x84 days, 158, cm, 08/03/21 8:38:00 EDT, Height, 57, kg, 10/07/19 8:45:00 EST, Dry Weight Start Date: 09/13/21 Stop Date: 08/15/22 Status: Ordered Problem List Condition Effective Dates Status Health Status Inform ant Anxiety(Confirmed) Active Depression(Confirmed) Active Family history of congenital anomaly of cardiovascular system(Confirmed) Active hx of Heart palpitations(Confirmed) Active Blood type, Rh negative(Confirmed) Active Social History Social History Type Response Smoking Status Never smoker entered on: 12/22/16 Sex
--- OUTSIDE RECORDS SUMMARY | 2023-05-29 00:03 | XMS_ITS | Continuity of Care Document ---
Author Name Unknown Organization [facility] Address [address] [place] [address]- Care Team Providers Care Pulpwood Cutter Name Role Phone Catrachito ZAFAR, Tiana Neumann Primary Care Physician [facility]s): 09/09/21 - 10/09/21 [facility] [address] [place] [address]- Allergies, Adverse Reactions, Alerts No Known Medication [...] is fo... Start Date: 08/03/21 Status: Ordered [place] 30 mcg-0.15 mg oral tablet 1 tablet, By Mouth, Daily, # 84 tablet, 3 Refills, Maintenance, 09/13/21 9:26:00 EST, Tablet, [facility]/pharmacy #2024, 1 tablet By Mouth Daily,x84 days, [...]
--- OUTSIDE RECORDS SUMMARY | 2023-05-29 00:03 | XMS_ITS | Continuity of Care Document ---
Author Name Unknown Organization [facility] Address [address] [place] [address]- Care Team Providers Care Meat Specialist Name Role Phone Catrachito ZAFAR, Tiana Neumann Primary Care Physician [facility]counter [facility] Date(s): 12/09/21 - 01/08/22 [facility] [address] [place] [address]- Attending Physician: Denia Anaya Admitting Physician: AdmDenia [...]
--- OUTSIDE RECORDS SUMMARY | 2023-05-29 00:03 | XMS_ITS | Continuity of Care Document ---
Author Name Unknown Organization [facility] Address [address] [place] [address]- Care Team Providers Care Renewable Energy Consultant Name Role Phone Catrachito ZAFAR, Tiana Neumann Primary Care Physician [facility] Date[facility]s): 07/27/21 - 08/26/21 [facility] [address] [place] [address]- Allergies, Adverse Reactions, Alerts No Known Medication [...]
--- OUTSIDE RECORDS SUMMARY | 2023-05-29 00:03 | XMS_ITS | Continuity of Care Document ---
Author Name Unknown Organization [facility] Address [address] [place] [address]- Care Team Providers Care Analytics Consultant Name Role Phone Catrachito ZAFAR, Tiana Neumann Primary Care Physician [facility] Date[facility]s): 05/12/20 - 06/11/20 [facility] [address] [place] [address]- [facility] Allergies, Adverse Reactions, Alerts No [...] Recorded pneumococcal 13-valent vaccine 05/28/00 Recorded Medications [place] 30 mcg-0.15 mg oral tablet 1 tablet, [...]
--- OUTSIDE RECORDS SUMMARY | 2023-05-29 00:03 | XMS_ITS | Continuity of Care Document ---
Author Name Unknown Organization [facility] Address [address] [place] [address]- Care Team Providers Care Rotary Shear Cutter Name Role Phone Catrachito ZAFAR, Tiana Neumann Primary Care Physician [facility]s): 07/28/21 - 08/27/21 [facility] [address] [place] [address]- Allergies, Adverse Reactions, Alerts No Known Medication [...]
--- OUTSIDE RECORDS SUMMARY | 2023-05-29 00:03 | XMS_ITS | Continuity of Care Document ---
Author Name Unknown Organization [facility] Address [address] [place] [address]- Care Team Providers Care Rolloff Truck Driver Name Role Phone Catrachito ZAFAR, Tiana Neumann Primary Care Physician [facility] Date(s): 03/16/21 - 04/15/21 [facility] [address] [place] [address]- Allergies, Adverse Reactions, Alerts No Known Medication [...]
--- OUTSIDE RECORDS SUMMARY | 2023-05-29 00:03 | XMS_ITS | Continuity of Care Document ---
Author Name Unknown Organization [facility] Address [address] [place] [address]- Care Team Providers Care Hook And Eye Sewing Machine Operator Name Role Phone Catrachito ASSOCIATE PRODUCER, Tiana Neumann Primary Care Physician Unava ilable [facility]counter [facility] Date(s): 04/24/22 - 05/24/22 [facility] [address] [place] [address]- Allergies, Adverse Reactions, Alerts No Known Allergies [...] mL, 0 Refills, Maintenance, 02/27/22 9:02:00 EDT,Suspension, [facility]/pharmacy #[id number], Partial fill upon patient request if the prescription is for a schedule II opioid drug., 158, cm, 12/09/21 9:34:00 EST,... Start Date: 02/27/22 Status: Ordered Depo-Provera Contraceptive 150 mg/mL intramuscular suspension 1 mL = 150 mg, Intramuscular, Every 3 months, # 1 mL, 1 Refills, Maintenance, 02/27/22 10:52:00 EDT, Suspension, [facility]/pharmacy #[id number], Partial fill upon patient request if the prescription is for a schedule II opioid drug., 158, cm, 12/09/21 9:34:00 EST... Start Date: 02/27/22 Stop Date: 08/26/22 Status: Ordered erythromycin 0.5% ophthalmic ointment See Instructions, APPLY 1/2 INCHESIN BOTH EYES, 2 TIMES A DAY,X10 DAYS, # 3.5 Gm, 0 Refills, [facility] STORE 82417, 10, APPLY 1/2 INCHESIN BOTH EYES, 2 TIMES A DAY,X10 DAYS, 158, cm, 04/24/22 10:43:00 EDT,Height, 44.8, kg, 02/24/22 11:27:00 EDT, Dry Weight Start Date: 05/01/22 Status: Ordered hydrOXYzine hydrochloride 25 mg oral tablet 1 tablet = 25 mg, By Mouth, 3 times a day, PRN for anxiety, # 40 tablet, 2 Refills, Maintenance, 04/26/21 16:51:00 EDT, Tablet, [facility]/pharmacy #2024, Partial fill upon patient request if the prescription is for a schedule II opioid drug., 158, cm, 04/26... Start Date: 04/26/21 Status: Ordered [place] 30 mcg-0.15 mg oral tablet 1 tablet, By Mouth, Daily, # 84 tablet, 3 Refills, Maintenance, 12/09/21 9:59:00 EST, Tablet, [facility]/pharmacy #2024, 1 tablet By Mouth Daily,x84 days, [...]
--- OUTSIDE RECORDS SUMMARY | 2023-05-29 00:04 | XMS_ITS | Continuity of Care Document ---
Author Name Unknown Organization [facility] Address [address] [place] [address]- Care Team Providers Care Special Agent Fbi Name Role Phone Catrachito ZAFAR, Tiana Neumann Primary Care Physician Unava ilable [facility]s): 09/05/22 - 09/12/22 [facility] [address] [place] [address]- Attending Physician: Not on Staff, Attending MD [...] mL, 0 Refills, Maintenance, 02/27/22 9:02:00 EDT,Suspension, [facility]/pharmacy #0447, Partial fill upon patient request if the prescription is for a schedule II opioid drug., 158, cm, 12/09/21 9:34:00 EST,... Start Date: 02/27/22 Status: Ordered Depo-Provera Contraceptive 150 mg/mL intramuscular suspension 1 mL = 150 mg, Intramuscular, Every 3 months, # 1 mL, 1 Refills, Maintenance, 02/27/22 10:52:00 EDT, Suspension, [facility]/pharmacy #0447, Partial fill upon patient request if the prescription is for a schedule II opioid drug., 158, cm, 12/09/21 9:34:00 EST... Start Date: 02/27/22 Stop Date: 08/26/22 Status: Ordered erythromycin 0.5% ophthalmic ointment See Instructions, APPLY 1/2 INCHESIN BOTH EYES, 2 TIMES A DAY,X10 DAYS, # 3.5 Gm, 0 Refills, [facility] ST[facility] 42071, 10, APPLY 1/2 INCHESIN BOTH EYES, 2 [...] cm, 04/26... Start Date: 04/26/21 Status: Ordered [place] 30 mcg-0.15 mg oral tablet 1 tablet, [...] Active Blood type, Rh negative Confirmed Active Underweight Confirmed Active Vital Signs Most recent to oldest [Reference Range]: 1 Height 158 cm (09/05/22 10:17 AM) Weight 44.8 kg (09/05/22 10:17 AM) Body Mass Index [18.5-24.99 kg/m2] 17.95 kg/m2 *L* (09/05/22 10:17 AM) Blood Pressure [90-138/55-84 mm Hg] 104/ 62mm Hg (09/05/22 10:17 AM) Blood pressure sites Arm, left (09/05/22 10:17 AM) Weight Obtained Via Standing scale (09/05/22 10:17 AM) Social History Social History Type Response Smoking Status Never smoker entered on: 12/22/16 Sex Patient Care team information Care Team Personnel Name: Tiana Winston NP Position: S PCO Associate Professional Member Role: PCP Care Team Related Persons Name: MADAN WALTERS Address: home [address] [place], [place] Name: HARRISON WALTERS Address: [address] [place], [place] Name: SHAE REYNOLDS Address: [place] Address: home [address]
--- OUTSIDE RECORDS SUMMARY | 2023-05-29 00:04 | XMS_ITS | Continuity of Care Document ---
Author Name Unknown Organization [facility] Address [address] [place] [address]- Care Team Providers Care Toaster Operator Name Role Phone Catrachito CHIEF AIRPORT GUIDE, Tiana Neumann Primary Care Physician [facility]s): 10/03/19 - 10/10/19 [facility] DESIGNER ARCHITECT [address] [place] [address]- [facility] Attending Physician: Vandana SILVA, Diane Young Allergies, Adverse Reactions, Alerts No Known Medication [...] Active hx of Heart palpitations(Confirmed) Active (Confirmed) Active Blood type, Rh negative(Confirmed) Active Vital Signs Most recent to oldest [Reference Range]: 1 Height 158 cm (10/03/19 2:38 PM) Weight 58.5 kg (10/03/19 2:38 PM) Body Mass Index [18.5-24.99] 23.43 (10/03/19 2:38 PM) Blood Pressure [90-138/55-84 mm Hg] 98/6 6mm Hg (10/03/19 2:38 PM) Blood pressure sites Arm, right (10/03/19 2:38 PM) Weight Obtained Via Standing scale (10/03/19 2:38 PM) Social History Social History Type Response Smoking Status Never smoker entered on: 12/22/16 Sex
--- OUTSIDE RECORDS SUMMARY | 2023-05-29 00:04 | XMS_ITS | Continuity of Care Document ---
Author Name Unknown Organization [facility] Address [address] [place] [address]- Care Team Providers Care Market Director Name Role Phone Catrachito ACCOUNTING SUPERVISOR, Tiana Neumann Primary Care Physician [facility]s): 11/18/19 - 11/25/19 [facility] BILLET STRAIGHTENER [address] [place] [address]- [facility] Attending Physician: Paz Goldberg MD Allergies, Adverse [...] palpitations(Confirmed) Active Blood type, Rh negative(Confirmed) Active Vital Signs Most recent to oldest [Reference Range]: 1 Height 158 cm (11/18/19 1:02 PM) Weight 49.8 kg (11/18/19 1:02 PM) Body Mass Index [18.5-24.99] 19.95 (11/18/19 1:02 PM) Blood Pressure [90-138/55-84 mm Hg] 96/5 4mm Hg (11/18/19 1:02 PM) Blood pressure sites Arm, right (11/18/19 1:02 PM) Weight Obtained Via Standing scale (11/18/19 1:02 PM) Social History Social History Type Response Smoking Status Never smoker entered on: 12/22/16 Sex
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
--- OUTSIDE RECORDS SUMMARY | 2023-05-29 00:04 | XMS_ITS | Continuity of Care Document ---
Author Name Unknown Organization [facility] Address [address] [place] [address]- Care Team Providers Care Water Taxi Captain Name Role Phone Tiana Winston NP Primary Care Physician Encounter [facility] Date(s): 05/13/20 - 05/20/20 [facility] [address] [place] [address]- [facility] Encounter Diagnosis Light-headedness(Discharge Diagnosis) - 05/13/20 Attending Physician: Tiana Winston NP Allergies, Adverse Reactions, Alerts No Known Medication Allergies Substance Reaction Severity Status NKA Active Immunizations Given and Recorded Vaccine Date Status Refusal Reason tetanus/diphtheria/pertussis, acel(Tdap) 07/22/19 Given tetanus/diphtheria/pertussis, acel(Tdap) 03/31/10 Recorded influenza virus vaccine, inactivated 07/22/19 Give n influenza virus vaccine, inactivated 06/19/14 [place] rded Human Papillomavirus Vaccine 12/18/14 Recorded Human [...] Recorded pneumococcal 13-valent vaccine 05/28/00 Recorded Medications Gall[place] 30 mcg-0.15 mg oral tablet 1 tablet, [...] Dates Health Status Cl inical Service Informant Light-headedness Discharge Diagnosis 05/13/20 Vital Signs Most recent to oldest [Reference Range]: 1 Height 158 cm (05/13/20 9:06 AM) Social History Social History Type Response Smoking Status Never smoker entered on: 12/22/16 Sex
--- OUTSIDE RECORDS SUMMARY | 2023-05-29 00:04 | XMS_ITS | Continuity of Care Document ---
Author Name Unknown Organization [facility] ter Address [address] [place] [address]- Care Team Providers Care Merchandise Shopper Name Role Phone Catrachito ZAFAR, Tiana Neumann Primary Care Physician [facility] Date(s): 10/07/19 - 10/09/[address] [address]- [facility] Discharge Disposition: A-D/C Home Attending Physician: Paz Goldberg MD Admitting Physician: Paz Goldberg MD Referring Physician: Paz Goldberg MD Allergies, [...] Most recent to oldest [Reference Range]: 1 2 3 Height 158 cm (10/09/19 8:30 AM) 158 cm (10/08/19 11:22 PM) 158 cm (10/08/19 3:57 PM) Weight 57 kg (10/07/19 8:45 AM) 57 kg (10/07/19 6:18 AM) Oxygen Saturation [94-100 %] 99 % (10/07/19 9:39 PM) 99 % (10/07/19 6:30 PM) 100 % (10/07/19 6:15 PM) Pulse Rate [55-90 bpm] 77 bpm (10/09/19 8:30 AM) 74 bpm (10/08/19 11:22 PM) 84 bpm (10/08/19 3:57 PM) Body Mass Index [18.5-24.99] 22.83 (10/07/19 8:45 AM) Blood Pressure [90-138/55-84 mm Hg] 108/57mm Hg (10/09/19 8:30 AM) 107/66mm Hg (10/08/19 11:22 PM) 102/65mm Hg (10/08/19 3:57 PM) Respiratory Rate [16-30 br/min] 16 br/min (10/09/19 8:30 AM) 18 br/min (10/08/19 11:22 PM) 19 br/min (10/08/19 3:57 PM) Temperature [96.8-100.4 DegF] 97.8 DegF (10/09/19 8:30 AM) 98.2 DegF (10/08/19 11:22 PM) 98.5 DegF (10/08/19 3:57 PM) Mode of Delivery (Oxygen) Room air (10/07/19 9:39 PM) Room air (10/07/19 6:40 AM) Blood pressure sites Arm, left (10/08/19 11:22 PM) Arm, right (10/08/19 3:57 PM) Arm, right (10/08/19 9:18 AM) Temperature Route Oral (10/09/19 8:30 AM) Oral (10/08/19 11:22 PM) Oral (10/08/19 3:57 PM) Dry Weight 57 kg (10/07/19 8:45 AM) 57 kg (10/07/19 6:18 AM) Weight Obtained Via Standing scale (10/07/19 6:18 AM) Dry Weight Obtained Via Standing scale (10/07/19 6:18 AM) Sensory deficits None (10/07/19 8:45 AM) Mobility assistance Independent (10/07/19 8:45 AM) Social History Social History Type Response Smoking Status Never smoker entered on: 12/22/16 Sex
--- OUTSIDE RECORDS SUMMARY | 2023-05-29 00:04 | XMS_ITS | Continuity of Care Document ---
Author Name Unknown Organization [facility] Address [address] [place] [address]- Care Team Providers Care Neonatal Specialist Name Role Phone Catrachito MOBILE DISC JOCKEY, Tiana Neumann Primary Care Physician Unava ilable [facility]counter [facility] Date(s): 05/16/22 - 06/15/22 [facility] [address] [place] [address]- Attending Physician: Denia Anaya Admitting Physician: AdmDenia [...] mL, 0 Refills, Maintenance, 02/27/22 9:02:00 EDT,Suspension, [facility]/pharmacy #[id number], Partial fill upon patient request if the prescription is for a schedule II opioid drug., 158, cm, 12/09/21 9:34:00 EST,... Start Date: 02/27/22 Status: Ordered Depo-Provera Contraceptive 150 mg/mL intramuscular suspension 1 mL = 150 mg, Intramuscular, Every 3 months, # 1 mL, 1 Refills, Maintenance, 02/27/22 10:52:00 EDT, Suspension, [facility]/pharmacy #[id number], Partial fill upon patient request if the prescription is for a schedule II opioid drug., 158, cm, 12/09/21 9:34:00 EST... Start Date: 02/27/22 Stop Date: 08/26/22 Status: Ordered erythromycin 0.5% ophthalmic ointment See Instructions, APPLY 1/2 INCHESIN BOTH EYES, 2 TIMES A DAY,X10 DAYS, # 3.5 Gm, 0 Refills, [facility], 10, APPLY 1/2 INCHESIN BOTH EYES, 2 [...] cm, 04/26... Start Date: 04/26/21 Status: Ordered [place] 30 mcg-0.15 mg oral tablet 1 tablet, [...] on: 12/22/16 Sex Care Team Personnel Name: Tiana Winston NP
--- OUTSIDE RECORDS SUMMARY | 2023-05-29 00:04 | XMS_ITS | Continuity of Care Document ---
Author Name Unknown Organization [facility] ter Address [address] [place] [address]- Care Team Providers Care Garden Equipment Mechanic Name Role Phone Catrachito ZAFAR, Tiana Neumann Primary Care Physician Unava ilable [facility]counter [facility] Date(s): 02/24/22 - 02/24/[address] [address] Discharge Disposition: A-D/C Home Attending Physician: Antonia Cervantes MD Admitting Physician: Antonia Cervantes MD Referring Physician: Antonia Cervantes MD Allergies, Adverse Reactions, Alerts No Known [...] Refills, Maintenance, 04/26/21 16:51:00 EDT, Tablet, [facility]/pharmacy #[id number], Partial fill upon patient request if the prescription is for a schedule II opioid drug., 158, cm, 04/26... Start Date: 04/26/21 Status: Ordered [place] 30 mcg-0.15 mg oral tablet 1 tablet, By Mouth, Daily, # 84 tablet, 3 Refills, Maintenance, 12/09/21 9:59:00 EST, Tablet, [facility]/pharmacy #202, 1 tablet By Mouth Daily,x84 days, 158, cm, 12/09/21 9:34:00 EST, Height Start Date: 12/09/21 Stop Date: 11/10/22 Status: Ordered Problem List Condition Effective Dates Status Health Status Inform ant Anxiety(Confirmed) Active Depression(Confirmed) Active Family history of congenital anomaly of cardiovascular system(Confirmed) Active hx of Heart palpitations(Confirmed) Active Blood type, Rh negative(Confirmed) Active Vital Signs Most recent to oldest [Reference Range]: 1 Weight 44.8 kg (02/24/22 11:27 AM) Oxygen Saturation [94-100 %] 100 % (02/24/22 11:27 AM) Pulse Rate [55-90 bpm] 119 bpm *H* (02/24/22 11:27 AM) Blood Pressure [90-138/55-84 mm Hg] 130/ 88mm Hg (02/24/22 11:27 AM) Respiratory Rate [16-30 br/min] 18 br/mi n (02/24/22 11:27 AM) Temperature [96.8-100.4 DegF] 99.1 DegF (02/24/22 11: AM) Mode of Delivery (Oxygen) Room air (02/24/22 11:27 AM) Blood pressure sites Arm, right 1 (02/24/22 11:27 AM) Temperature Route Oral (02/24/22 11:27 AM) Dry Weight 44.8 kg (02/24/22 11:27 AM) 1Result Comment: right upper arm measured 22cm Social History Social History Type Response Smoking Status Never smoker entered on: 12/22/16 Sex
--- OUTSIDE RECORDS SUMMARY | 2023-05-29 00:04 | XMS_ITS | Continuity of Care Document ---
Author Name Unknown Organization [facility] Address [address] [place] [address]- Care Team Providers Care Freight Delivery Driver Name Role Phone Catrachito ZAFAR, Tiana Neumann Primary Care Physician [facility]counter [facility] Date(s): 09/19/19 - 10/30/[facility] [address] [place] [address]- [facility] Attending Physician: Not on Staff, Attending MD [...]
--- OUTSIDE RECORDS SUMMARY | 2023-05-29 00:04 | XMS_ITS | Continuity of Care Document ---
Author Name Unknown Organization [facility] Address [address] [place] [address]- Care Team Providers Care Parts Advisor Name Role Phone Catrachito ZAFAR, Tiana Neumann Primary Care Physician Encounter [facility] Date(s): 07/27/21 - 08/26/21 [facility] [address] [place] [address]- Allergies, Adverse Reactions, Alerts No Known Medication [...]
--- OUTSIDE RECORDS SUMMARY | 2023-05-29 00:04 | XMS_ITS | Continuity of Care Document ---
Author Name Unknown Organization [facility] Address [address] [place] [address]- Care Team Providers Care Reporter Anchor Name Role Phone Catrachito FAMILY PRACTICE NURSE PRACTITIONER, Tiana Neumann Primary Care Physician Unava ilable Encounter [facility] Date(s): 05/16/22 - 05/23/22 [facility] [address] [place] [address]- Attending Physician: Not on Staff, Attending MD [...] mL, 0 Refills, Maintenance, 02/27/22 9:02:00 EDT,Suspension, [facility]/pharmacy #[id number], Partial fill upon patient request if the prescription is for a schedule II opioid drug., 158, cm, 12/09/21 9:34:00 EST,... Start Date: 02/27/22 Status: Ordered Depo-Provera Contraceptive 150 mg/mL intramuscular suspension 1 mL = 150 mg, Intramuscular, Every 3 months, # 1 mL, 1 Refills, Maintenance, 02/27/22 10:52:00 EDT, Suspension, [facility]/pharmacy #[id number], Partial fill upon patient request if the prescription is for a schedule II opioid drug., 158, cm, 12/09/21 9:34:00 EST... Start Date: 02/27/22 Stop Date: 08/26/22 Status: Ordered erythromycin 0.5% ophthalmic ointment See Instructions, APPLY 1/2 INCHESIN BOTH EYES, 2 TIMES A DAY,X10 DAYS, # 3.5 Gm, 0 Refills, [facility], 10, APPLY 1/2 INCHESIN BOTH EYES, 2 TIMES A DAY,X10 DAYS, 158malika, 04/24/22 10:43:00 EDT,Height, 44.8, kg, 02/24/22 11:27:00 EDT, Dry Weight Start Date: 05/01/22 Status: Ordered hydrOXYzine hydrochloride 25 mg oral tablet 1 tablet = 25 mg, By Mouth, 3 times a day, PRN for anxiety, # 40 tablet, 2 Refills, Maintenance, 04/26/21 16:51:00 EDT, Tablet, [facility]/pharmacy #2024, Partial fill upon patient request if the prescription is for a schedule II opioid drug., 158, cm, 04/26... Start Date: 04/26/21 Status: Ordered [place] 30 mcg-0.15 mg oral tablet 1 tablet, By Mouth, Daily, # 84 tablet, 3 Refills, Maintenance, 12/09/21 9:59:00 EST, Tablet, [facility]/pharmacy #202, 1 tablet By Mouth Daily,x84 days, [...]
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
--- OUTSIDE RECORDS SUMMARY | 2023-05-29 00:04 | XMS_ITS | Continuity of Care Document ---
Author Name Unknown Organization [facility] Address [address] [place] [address]- Care Team Providers Care Furniture Assembly Supervisor Name Role Phone Tiana Winston NP Primary Care Physician [place] [facility] 07/15[place] - 07/22/21 [facility] [address] [place] [address]- Encounter Diagnosis Pyelonephritis(Discharge Diagnosis) - 07/15/21 Nausea(Discharge Diagnosis) - 07/15/21 Attending Physician: Tiana Winston NP Allergies, Adverse [...] Dates Health Status Cl inical Service Informant Pyelonephritis Discharge Diagnosis 07/15/21 Nausea Discharge Diagnosis 07/15/21 Vital Signs Most recent to oldest [Reference Range]: 1 Height 158 cm (07/15/21 3:25 PM) Weight 44.7 kg (07/15/21 3:25 PM) Oxygen Saturation [94-100 %] 97 % (07/15/21 3:25 PM) Pulse Rate [55-90 bpm] 111 bpm *H* (07/15/21 3:25 PM) Body Mass Index [18.5-24.99] 17.91 *L* (07/15/21 3:25 PM) Blood Pressure [90-138/55-84 mm Hg] 122/ 81mm Hg (07/15/21 3:25 PM) Respiratory Rate [16-30 br/min] 26 br/mi n (07/15/21 3:25 PM) Blood pressure sites Arm, left (07/15/21 3:25 PM) Social History Social History Type Response Smoking Status Never smoker entered on: 12/22/16 Sex
--- OUTSIDE RECORDS SUMMARY | 2023-05-29 00:04 | XMS_ITS | Continuity of Care Document ---
Author Name Unknown Organization [facility] Address [address] [place] [address]- Care Team Providers Care Biomedical Engineering Supervisor Name Role Phone Catrachito ZAFAR, Tiana Neumann Primary Care Physician [facility] Date(s): 07/11/21 - 08/10/21 [facility] [address] [place] [address]- Allergies, Adverse Reactions, Alerts No Known Medication [...] is fo... Start Date: 08/03/21 Status: Ordered [place] 30 mcg-0.15 mg oral tablet 1 tablet, [...]
--- OUTSIDE RECORDS SUMMARY | 2023-05-29 00:04 | XMS_ITS | Continuity of Care Document ---
Author Name Unknown Organization [facility] Address [address] [place] [address]- Care Team Providers Care Crm Functional Analyst Name Role Phone Catrachito HOUSE PRINCIPAL, Tiana Neumann Primary Care Physician Unava ilable [facility]counter [facility] Date(s): 11/24/21 - 03/09/22 [facility] [address] [place] [address]- Attending Physician: Not on Staff, Attending MD [...] Refills, Maintenance, 02/27/22 9:02:00 EDT,Suspension, [facility]/pharmacy #[id number], Partial fill upon patient request if the prescription is for a schedule II opioid drug., 158, malika, 12/09/21 9:34:00 EST,... Start Date: 02/27/22 Status: Ordered Depo-Provera Contraceptive 150 mg/mL intramuscular suspension 1 mL = 150 mg, Intramuscular, Every 3 months, # 1 mL, 1 Refills, Maintenance, 02/27/22 10:52:00 EDT, Suspension, [facility]/pharmacy #[id number], Partial fill upon patient request if the prescription is for a schedule II opioid drug., 158, cm, 12/09/21 9:34:00 EST... Start Date: 02/27/22 Stop Date: 08/26/22 Status: Ordered hydrOXYzine hydrochloride 25 mg oral tablet 1 tablet = 25 mg, By Mouth, 3 times a day, PRN for anxiety, # 40 tablet, 2 Refills, Maintenance, 04/26/21 16:51:00 EDT, Tablet, [facility]/pharmacy #[id number], Partial fill upon patient request if the [...]
--- OUTSIDE RECORDS SUMMARY | 2023-05-29 00:05 | XMS_ITS | Continuity of Care Document ---
Author Name Unknown Organization [facility] ter Address [address] [place] [address]- Care Team Providers Care Tester Food Products Name Role Phone Catrachito REGIONAL SALES REPRESENTATIVE, Tiana Neumann Primary Care Physician [facility] Date(s): 09/26/19 - 11/11/[address] [address] [facility] Attending Physician: Magnolia Comer MD Referring Physician: Paz Goldberg MD Allergies, [...]
--- OUTSIDE RECORDS SUMMARY | 2023-05-29 00:05 | XMS_ITS | Continuity of Care Document ---
Author Name Unknown Organization [facility] Address [address] [place] [address]- Care Team Providers Care Board Handler Name Role Phone Catrachito ZAFAR, Tiana Neumann Primary Care Physician [facility] Date(s): 07/11/21 - 08/10/21 [facility] [address] [place] [address]- Allergies, Adverse Reactions, Alerts No Known Medication [...] is fo... Start Date: 08/03/21 Status: Ordered [place] 30 mcg-0.15 mg oral tablet 1 tablet, [...]
--- OUTSIDE RECORDS SUMMARY | 2023-05-29 00:05 | XMS_ITS | Continuity of Care Document ---
Author Name Unknown Organization [facility] Address [address] [place] [address]- Care Team Providers Care Architectural Manager Name Role Phone Catrachito LOG DATA TECHNICIAN, Tiana Neumann Primary Care Physician [facility] Date(s): 09/26/19 - 10/03/19 [facility] [address] [place] [address]- [facility] Attending Physician: Paz Goldberg MD Allergies, Adverse [...] Active hx of Heart palpitations(Confirmed) Active (Confirmed) 12/15/18 Active Blood type, Rh negative(Confirmed) Active Vital Signs Most recent to oldest [Reference Range]: 1 Height 158 cm (09/26/19 8:47 AM) Weight 57.2 kg (09/26/19 8:47 AM) Body Mass Index [18.5-24.99] 22.91 (09/26/19 8:47 AM) Blood Pressure [90-138/55-84 mm Hg] 100/ 64mm Hg (09/26/19 8:47 AM) Blood pressure sites Arm, right (09/26/19 8:47 AM) Weight Obtained Via Standing scale (09/26/19 8:47 AM) Social History Social History Type Response Smoking Status Never smoker entered on: 12/22/16 Sex
--- OUTSIDE RECORDS SUMMARY | 2023-05-29 00:05 | XMS_ITS | Continuity of Care Document ---
Author Name Unknown Organization [facility] Address [address] [place] [address]- Care Team Providers Care Language Tutor Name Role Phone Nasim ZAFAR, Maddie Primary Care Physician [phone] [place] [facility] [place] 11[place]09/[place] - 12/14/22 [facility] [address] [place] [address]- Attending Physician: Laura SILVA, Catrina Villafana Allergies, Adverse Reactions, Alerts No Known Allergies [...] 0 Refills, Maintenance, 02/27/22 9:02:00 EDT,Suspension, [facility]/pharmacy #[id number], Partial fill upon patient request if the prescription is for a schedule II opioid drug., 158, cm, 12/09/21 9:34:00 EST,... Start Date: 02/27/22 Status: Ordered Depo-Provera Contraceptive 150 mg/mL intramuscular suspension 1 mL = 150 mg, Intramuscular, Every 3 months, # 1 mL, 1 Refills, Maintenance, 02/27/22 10:52:00 EDT, Suspension, [facility]/pharmacy #[id number], Partial fill upon patient request if the prescription is for a schedule II opioid drug., 158, cm, 12/09/21 9:34:00 EST... Start Date: 02/27/22 Stop Date: 08/26/22 Status: Ordered erythromycin 0.5% ophthalmic ointment See Instructions, APPLY 1/2 INCHESIN BOTH EYES, 2 TIMES A DAY,X10 DAYS, # 3.5 Gm, 0 Refills, [facility], 10, APPLY 1/2 INCHESIN BOTH EYES, 2 [...] Team Personnel Name: Maddie Rouse NP Position: [facility] Outreach Member Role: PCP Address: Address: [address] [place] [address] [facility] [address] Care Team Related Persons Name: MADAN WALTERS Address: home [address] [place] [address] Name: HARRISON WALTERS Address: home [address] [place] [address] Name: SHAE REYNOLDS Address: [place] Address: [address]
--- OUTSIDE RECORDS SUMMARY | 2023-05-29 00:05 | XMS_ITS | Continuity of Care Document ---
Author Name Unknown Organization [facility] Address [address] [place] [address]- Care Team Providers Care Fishing Accessories Maker Name Role Phone Catrachito ZAFAR, Tiana Neumann Primary Care Physician Encounter [facility] Date(s): 08/24/21 - 09/23/21 [facility] [address] [place] [address]- Attending Physician: Admtr, Ar8 Admitting Physician: Admtr, Ar8 Referring Physician: Admtr, Ar8 Allergies, Adverse Reactions, [...] 2 Refills, Maintenance, 04/26/21 16:51:00 EDT, Tablet, [facility]/pharmacy #[id number], Partial fill upon patient request if [...] 3 Refills, Maintenance, 09/13/21 9:26:00 EST, Tablet, [facility]/pharmacy #[id number], 1 tablet By Mouth Daily,x84 days, [...]
--- OUTSIDE RECORDS SUMMARY | 2023-05-29 00:05 | XMS_ITS | Continuity of Care Document ---
Author Name Unknown Organization [facility] Address [address] [place] [address]- Care Team Providers Care Corporate Counselor Name Role Phone Maddie Rouse NP Primary Care Physician En[place] [facility] [place](s): 02/07/23 - 03/09/23 [facility] [address] [place] [address]- Allergies, Adverse Reactions, Alerts No Known Allergies [...] mL, 0 Refills, Maintenance, 02/27/22 9:02:00 EDT,Suspension, [facility]/pharmacy #[id number], Partial fill upon patient request if the prescription is for a schedule II opioid drug., 158malika, 12/09/21 9:34:00 EST,... Start Date: 02/27/22 Status: Ordered Depo-Provera Contraceptive 150 mg/mL intramuscular suspension 1 mL = 150 mg, Intramuscular, Every 3 months, # 1 mL, 1 Refills, Maintenance, 02/07/23 15:55:00 EDT, Suspension, [facility]/pharmacy #[id number], Partial fill upon patient request if the prescription is for a schedule II opioid drug., 158malika, 11/22/22 16:52:00 ES... Start Date: 02/07/23 Stop Date: 08/06/23 Status: Ordered erythromycin 0.5% ophthalmic ointment See Instructions, APPLY 1/2 INCHESIN BOTH EYES, 2 TIMES A DAY,X10 DAYS, # 3.5 Gm, 0 Refills, [facility], 10, APPLY 1/2 INCHESIN BOTH EYES, 2 TIMES A DAY,X10 DAYS, malika Dan, 04/24/22 10:43:00 EDT,Height, 44.8, kg, 02/24/22 11:27:00 EDT, Dry Weight Start Date: 05/01/22 Status: Ordered hydrOXYzine hydrochloride 25 mg oral tablet 1 tablet = 25 mg, By Mouth, 3 times a day, PRN for anxiety, # 40 tablet, 2 Refills, Maintenance, 04/26/21 16:51:00 EDT, Tablet, [facility]/pharmacy #202, Partial fill upon patient request if the prescription is for a schedule II opioid drug., 158, cm, 04/26... Start Date: 04/26/21 Status: Ordered [place] 30 mcg-0.15 mg oral tablet 1 tablet, By Mouth, Daily, # 84 tablet, 3 Refills, Maintenance, 12/09/21 9:59:00 EST, Tablet, [facility]acy [facility], 1 tablet By Mouth Daily,x84 days, [...] Team Personnel Name: Maddie Rouse NP [facility] Outreach Member Role: PCP Address: Address: [address] [place] [address] [place] [address]- Care Team Related Persons Name: MADAN WALTERS Address: home [address], [place] Name: HARRISON WALTERS Address: home [address], [place] Name: SHAE REYNOLDS Address: [employer] Address: home [address] [place] [address] [place]
--- OUTSIDE RECORDS SUMMARY | 2023-05-29 00:05 | XMS_ITS | Continuity of Care Document ---
Author Name Unknown Organization [facility] Address [address] [place] [address]- Care Team Providers Care Leadite Man Name Role Phone Catrachito ZAFAR, Tiana Neumann Primary Care Physician En[place] [facility] Date(s): 04/27/21 - 05/27/21 [facility] [address] [place] [address]- Allergies, Adverse Reactions, Alerts No Known Medication [...] cm, 04/26... Start Date: 04/26/21 Status: Ordered [place] 30 mcg-0.15 mg oral tablet 1 tablet, [...]
--- OUTSIDE RECORDS SUMMARY | 2023-05-29 00:05 | XMS_ITS | Continuity of Care Document ---
Author Name Unknown Organization [facility] Address [address] [place] [address]- Care Team Providers Care Placement Secretary Name Role Phone Catrachito SHINGLE SHEARING MACHINE OPERATOR, Tiana Neumann Primary Care Physician Unava ilable [facility] Date[facility]): 04/24/22 - 05/24/22 [facility] [address] [place] [address]- Attending Physician: Denia Anaya Admitting Physician: AdmDenia [...] Refills, Maintenance, 02/27/22 9:02:00 EDT,Suspension, [facility]/pharmacy #[id number], Partial fill upon patient request if the prescription is for a schedule II opioid drug., 158, cm, 12/09/21 9:34:00 EST,... Start Date: 02/27/22 Status: Ordered Depo-Provera Contraceptive 150 mg/mL intramuscular suspension 1 mL = 150 mg, Intramuscular, Every 3 months, # 1 mL, 1 Refills, Maintenance, 02/27/22 10:52:00 EDT, Suspension, [facility]/pharmacy #[id number], Partial fill upon patient request if the prescription is for a schedule II opioid drug., 158, cm, 12/09/21 9:34:00 EST... Start Date: 02/27/22 Stop Date: 08/26/22 Status: Ordered erythromycin 0.5% ophthalmic ointment See Instructions, APPLY 1/2 INCHESIN BOTH EYES, 2 TIMES A DAY,X10 DAYS, # 3.5 Gm, 0 Refills, [facility] STORE [id number], 10, APPLY 1/2 INCHESIN BOTH EYES, 2 [...] cm, 04/26... Start Date: 04/26/21 Status: Ordered [place] 30 mcg-0.15 mg oral tablet 1 tablet, [...]
--- OUTSIDE RECORDS SUMMARY | 2023-05-29 00:05 | XMS_ITS | Continuity of Care Document ---
Author Name Unknown Organization [facility] Address [address] [place] [address]- Care Team Providers Care Venetian Blind Machine Operator Name Role Phone Tiana Winston NP Primary Care Physician [facility] Date(s[place] 12/09/21 - 12/16/21 [facility] [address] [place] [address]- Encounter Diagnosis Anxiety(Discharge Diagnosis) - 12/09/21 Contraceptive education(Discharge Diagnosis) - 12/09/21 Attending Physician: Tiana Winston NP Allergies, Adverse [...] Refills, Maintenance, 04/26/21 16:51:00 EDT, Tablet, [id number], Partial fill upon patient request if the [...] Effective Dates Health Status Clinical Service Informant Anxiety Discharge Diagnosis 12/09/21 Contraceptive education Discharge Diagnosis 12/09/21 Vital Signs Most recent to oldest [Reference Range]: 1 Height 158 cm (12/09/21 9:34 AM) Social History Social History Type Response Smoking Status Never smoker entered on: 12/22/16 Sex
--- OUTSIDE RECORDS SUMMARY | 2023-05-29 00:05 | XMS_ITS | Continuity of Care Document ---
Author Name Unknown Organization [facility] Address [address] [place] [address]- Care Team Providers Care File System Installer Name Role Phone Catrachito JAVA DEVELOPMENT TEAM LEAD, Tiana Neumann Primary Care Physician [facility] Date[facility]s): 09/19/19 - 11/08/[facility] [address] [place] [address]- [facility] Attending Physician: Not on Staff, Attending [...]
--- OUTSIDE RECORDS SUMMARY | 2023-05-29 00:05 | XMS_ITS | Continuity of Care Document ---
Author Name Unknown Organization [facility] Address [address] [place] [address]- Care Team Providers Care Bath Mix Operator Name Role Phone Catrachito STOCKROOM ATTENDANT, Tiana Neumann Primary Care Physician Encounter [facility] Date(s): 10/03/19 - 10/10/19 [facility] [address] [place] [address]- [facility] Attending Physician: Not on Staff, Attending MD Referring Physician: Vandana SILVA, Diane Young Allergies, Adverse [...] (Confirmed) Active Blood type, Rh negative(Confirmed) Active Social History Social History Type Response Smoking Status Never smoker entered on: 12/22/16 Sex
--- OUTSIDE RECORDS SUMMARY | 2023-05-29 00:05 | XMS_ITS | Continuity of Care Document ---
Author Name Unknown Organization [facility] Address [address] [place] [address]- Care Team Providers Care Learning Operations Specialist Name Role Phone Catrachito ZAFAR, Tiaan Neumann Primary Care Physician Unava ilable [facility]counter [facility] Date(s): 05/03/22 - 08/31/22 [facility] [address] [place] [address]- Attending Physician: Paz Goldberg MD Allergies, Adverse [...] mL, 0 Refills, Maintenance, 02/27/22 9:02:00 EDT,Suspension, [facility]/pharmacy #[id number], Partial fill upon patient request if the prescription is for a schedule II opioid drug., 158, cm, 12/09/21 9:34:00 EST,... Start Date: 02/27/22 Status: Ordered Depo-Provera Contraceptive 150 mg/mL intramuscular suspension 1 mL = 150 mg, Intramuscular, Every 3 months, # 1 mL, 1 Refills, Maintenance, 02/27/22 10:52:00 EDT, Suspension, [facility]/pharmacy #[id number], Partial fill upon patient request if the prescription is for a schedule II opioid drug., 158, cm, 12/09/21 9:34:00 EST... Start Date: 02/27/22 Stop Date: 08/26/22 Status: Ordered erythromycin 0.5% ophthalmic ointment See Instructions, APPLY 1/2 INCHESIN BOTH EYES, 2 TIMES A DAY,X10 DAYS, # 3.5 Gm, 0 Refills, [facility] STORE [id number], 10, APPLY 1/2 INCHESIN BOTH EYES, 2 [...] cm, 04/26... Start Date: 04/26/21 Status: Ordered [place] 30 mcg-0.15 mg oral tablet 1 tablet, [...] Personnel Name: Catrachito ZAFAR, Tiana Neumann Position: S PCO Associate Professional Member Role: PCP Care Team Related Persons Name: MADAN WALTERS Address: home [address], [place] Name: HARRISON WALTERS Address: home [address] [place] [address] Name: SHAE REYNOLDS Address: [employer] Address: [address] [address] [place]
--- OUTSIDE RECORDS SUMMARY | 2023-05-29 00:05 | XMS_ITS | Continuity of Care Document ---
Author Name Unknown Organization [facility] Address [address] [place] [address]- Care Team Providers Care Business Banking Relationship Manager Name Role Phone Catrachito ZAFAR, Tiana Neumann Primary Care Physician Encounter [facility] Date(s): 05/11/21 - 06/10/21 [facility] [address] [place] [address]- Attending Physician: Admtr, [id number] Admitting Physician: Admtr, [...]
--- OUTSIDE RECORDS SUMMARY | 2023-05-29 00:05 | XMS_ITS | Continuity of Care Document ---
Author Name Unknown Organization [facility] Address [address] [place] [address]- Care Team Providers Care Retail Coverage Merchandiser Name Role Phone Tiana Winston NP Primary Care Physician Encounter [facility] Date(s): 08/03/21 - 08/10/21 [facility] [address] [place] [address]- Encounter Diagnosis Contraceptive management(Discharge Diagnosis) - 08/03/21 Attending Physician: Tiana Winston NP Allergies, Adverse [...] Refills, Maintenance, 04/26/21 16:51:00 EDT, Tablet, [facility]/pharmacy #[id number], Partial fill upon patient request if [...] Refills, Maintenance, 07/27/21 11:05:00 EDT, Tablet, [id number], 1 tablet By Mouth [...] Effective Dates Health Status Clinical Service Informant Contraceptive management Discharge Diagnosis 08/03/21 Vital Signs Most recent to oldest [Reference Range]: 1 Height 158 cm (08/03/21 8:38 AM) Social History Social History Type Response Smoking Status Never smoker entered on: 12/22/16 Sex
--- OUTSIDE RECORDS SUMMARY | 2023-05-29 00:06 | XMS_ITS | Continuity of Care Document ---
Author Name Unknown Organization [facility] Address [address] [place] [address]- Care Team Providers Care Printing Table Worker Name Role Phone Catrachito ZAFAR, Tiana Neumann Primary Care Physician [facility] Date[facility]s): 09/29/20 - 10/29/20 [facility] [address] [place] [address]- Allergies, Adverse Reactions, Alerts No Known Medication [...]
--- OUTSIDE RECORDS SUMMARY | 2023-05-29 00:06 | XMS_ITS | Continuity of Care Document ---
Author Name Unknown Organization [facility] Address [address] [place] [address]- Care Team Providers Care Etiquette Coach Name Role Phone Catrachito WET END OPERATOR, Tiana Neumann Primary Care Physician [facility] Date(s): 12/08/21 - 01/07/22 [facility] [address] [place] [address]- Allergies, Adverse Reactions, Alerts No Known Allergies [...] 2 Refills, Maintenance, 04/26/21 16:51:00 EDT, Tablet, [facility]/pharmacy #[id number], Partial fill upon patient request if the prescription is for a schedule II opioid drug., 158, cm, 04/26... Start Date: 04/26/21 Status: Ordered Pavo 30 mcg-0.15 mg oral tablet 1 tablet, [...]
--- OUTSIDE RECORDS SUMMARY | 2023-05-29 00:06 | XMS_ITS | Continuity of Care Document ---
Author Name Unknown Organization [facility] Address [address] [place] [address]- Care Team Providers Care Commissioner Of Conciliation Name Role Phone Nasim ZAFAR, Maddie Primary Care Physician [facility] Date(s): 08/31/22 - 09/30/22 [facility] [address] [place] [address]- Allergies, Adverse Reactions, Alerts No Known Allergies [...] mL, 0 Refills, Maintenance, 02/27/22 9:02:00 EDT,Suspension, [facility]/pharmacy #[id number], Partial fill upon patient request if the prescription is for a schedule II opioid drug., 158, cm, 12/09/21 9:34:00 EST,... Start Date: 02/27/22 Status: Ordered Depo-Provera Contraceptive 150 mg/mL intramuscular suspension 1 mL = 150 mg, Intramuscular, Every 3 months, # 1 mL, 1 Refills, Maintenance, 02/27/22 10:52:00 EDT, Suspension, [facility]/pharmacy #[id number], Partial fill upon patient request if the prescription is for a schedule II opioid drug., 158, cm, 12/09/21 9:34:00 EST... Start Date: 02/27/22 Stop Date: 08/26/22 Status: Ordered erythromycin 0.5% ophthalmic ointment See Instructions, APPLY 1/2 INCHESIN BOTH EYES, 2 TIMES A DAY,X10 DAYS, # 3.5 Gm, 0 Refills, [facility] STORE [id number], 10, APPLY 1/2 INCHESIN BOTH EYES, 2 [...] cm, 04/26... Start Date: 04/26/21 Status: Ordered [place] 30 mcg-0.15 mg oral tablet 1 tablet, [...] Rh negative Confirmed Active Underweight Confirmed Active Social History Social History Type Response Smoking Status Never smoker entered on: 12/22/16 Sex Patient Care team information Care Team Personnel Name: Maddie Rouse NP Position: [facility] Outreach Member Role: PCP Address: Address: [address] [place] [address] [facility] [address] Care Team Related Persons Name: MADAN WALTERS Address: home [address] [place] [address] Name: HARRISON WALTERS Address: home [address] [place], [place] Name: SHAE REYNOLDS Address: Leonor AMAMA Address: [address]
--- OUTSIDE RECORDS SUMMARY | 2023-05-29 00:06 | XMS_ITS | Continuity of Care Document ---
Author Name Unknown Organization [facility] Address [address] [place] [address]- Care Team Providers Care Time Analysis Clerk Name Role Phone Catrachito BONBON DIPPER, Tiana Neumann Primary Care Physician [facility]s): 09/19/19 - 09/26/19 [facility] AGENT TELEGRAPHER [address] [place] [address]- [facility] Attending Physician: Paz Goldberg MD [...] oldest [Reference Range]: 1 Height 158 cm (09/19/19 10:10 AM) Weight 57.6 kg (09/19/19 10:10 AM) Body Mass Index [18.5-24.99] 23.07 (09/19/19 10:10 AM) Blood Pressure [90-138/55-84 mm Hg] 90/5 6mm Hg (09/19/19 10:10 AM) Blood pressure sites Arm, right (09/19/19 10:10 AM) Weight Obtained Via Standing scale (09/19/19 10:10 AM) Social History Social History Type Response Smoking Status Never smoker entered on: 12/22/16 Sex
--- OUTSIDE RECORDS SUMMARY | 2023-05-29 00:06 | XMS_ITS | Continuity of Care Document ---
Author Name Unknown Organization [facility] Address [address] [place] [address]- Care Team Providers Care Medical Billing Manager Name Role Phone Catrachito ZAFAR, Tiana Neumann Primary Care Physician [facility] Date(s): 03/08/21 - 04/07/21 [facility] [address] [place] [address]- Allergies, Adverse Reactions, Alerts No Known Medication [...] corded pneumococcal 13-valent vaccine 05/28/00 Recorded Medications [place] 30 mcg-0.15 mg oral tablet 1 tablet, [...]
--- OUTSIDE RECORDS SUMMARY | 2023-05-29 00:06 | XMS_ITS | Continuity of Care Document ---
Author Name Unknown Organization [facility] Address [address] [place] [address]- Care Team Providers Care Campus Coordinator Name Role Phone Catrachito BACK TENDER CYLINDER, Tiana Neumann Primary Care Physician [facility] Date(s): 09/05/19 - 11/09/19 [facility] HYDRAULIC JACK ADJUSTER [address] [place] [address]- [facility] Attending Physician: Paz Goldberg MD Allergies, Adverse [...]
--- OUTSIDE RECORDS SUMMARY | 2023-05-29 00:06 | XMS_ITS | Continuity of Care Document ---
Author Name Unknown Organization [facility] Address [address] [place] [address]- Care Team Providers Care Attendance Secretary Name Role Phone Catrachito AZFAR, Tiana Neumann Primary Care Physician [facility] Date(s): 07/02/20 - 08/01/20 [facility] [address] [place] [address]- [facility] Allergies, Adverse Reactions, Alerts No Known Medication [...] Recorded pneumococcal 13-valent vaccine 05/28/00 Recorded Medications Elliott 30 mcg-0.15 mg oral tablet 1 tablet, By Mouth, Daily, # 84 tablet, 3 Refills, Maintenance, 07/02/20 13:08:00 EDT, Tablet, [id number], 1 tablet By Mouth Daily,x84 days, 158, cm, 05/13/20 9:06:00 EDT, Height, 57, kg, 10/07/19 8:45:00 EST, Dry Weight Start Date: 07/02/20 Stop Date: 06/03/21 Status: Ordered Problem List Condition Effective Dates Status Health Status Inform ant Anxiety(Confirmed) Active Depression(Confirmed) Active Family history of congenital anomaly of cardiovascular system(Confirmed) Active hx of Heart palpitations(Confirmed) Active Blood type, Rh negative(Confirmed) Active Social History Social History Type Response Smoking Status Never smoker entered on: 12/22/16 Sex
--- OUTSIDE RECORDS SUMMARY | 2023-05-29 00:06 | XMS_ITS | Continuity of Care Document ---
Author Name Unknown Organization [facility] Address [address] [place] [address]- Care Team Providers Care Bilingual Manager Name Role Phone Catrachito ZAFAR, Tiana Neumann Primary Care Physician [facility]s): 07/07/21 - 08/06/21 [facility] [address] [place] [address]- Allergies, Adverse Reactions, Alerts No Known Medication [...] is fo... Start Date: 08/03/21 Status: Ordered [place] 30 mcg-0.15 mg oral tablet 1 tablet, [...]
--- OUTSIDE RECORDS SUMMARY | 2023-05-29 00:06 | XMS_ITS | Continuity of Care Document ---
Author Name Unknown Organization [facility] Address [address] [place] [address]- Care Team Providers Care Time Study Observer Name Role Phone Maddie Rouse NP Primary Care Physician [phone] [id number] Date(s): 02/07/23 - 02/14/23 [facility] [address] [place] [address]- Attending Physician: Not on Staff, Attending MD [...] mL, 0 Refills, Maintenance, 02/27/22 9:02:00 EDT,Suspension, [facility]/pharmacy #[id number], Partial fill upon patient request if the prescription is for a schedule II opioid drug., 158, cm, 12/09/21 9:34:00 EST,... Start Date: 02/27/22 Status: Ordered Depo-Provera Contraceptive 150 mg/mL intramuscular suspension 1 mL = 150 mg, Intramuscular, Every 3 months, # 1 mL, 1 Refills, Maintenance, 02/07/23 15:55:00 EDT, Suspension, [facility]/pharmacy #[id number], Partial fill upon patient request if the prescription is for a schedule II opioid drug., 158, cm, 11/22/22 16:52:00 ES... Start Date: 02/07/23 Stop Date: 08/06/23 Status: Ordered erythromycin 0.5% ophthalmic ointment See Instructions, APPLY 1/2 INCHESIN BOTH EYES, 2 TIMES A DAY,X10 DAYS, # 3.5 Gm, 0 Refills, [facility] STORE 64711, 10, APPLY 1/2 INCHESIN BOTH EYES, 2 [...] cm, 04/26... Start Date: 04/26/21 Status: Ordered [place] 30 mcg-0.15 mg oral tablet 1 tablet, [...] oldest [Reference Range]: 1 Height 158 cm (02/07/23 4:32 PM) Weight 50.7 kg (02/07/23 4:32 PM) Body Mass Index [18.5-24.99 kg/m2] 20.31 kg/m2 (02/07/23 4:32 PM) Blood Pressure [90-138/55-84 mm Hg] 100/ 60mm Hg (02/07/23 4:32 PM) Blood pressure sites Arm, right (02/07/23 4:32 PM) Weight Obtained Via Standing scale (02/07/23 4:32 PM) Social History Social History Type Response Smoking Status Never smoker entered on: 12/22/16 Sex Patient Care team information Care Team Personnel Name: Maddie Rouse NP Position: [facility] Outreach Member Role: PCP Address: Address: [address] [place] [address] [place] [address]- Care Team Related Persons Name: MADAN WALTERS Address: home [address] [place], [place] Name: HARRISON WALTERS Address: home [address] [place] [address] Name: SHAE REYNOLDS Address: [employer] Address: home [address] [place] [address] [place]
[2023-05-29 00:12] VITALS: BP 106/74; PULSE 72; RESP 16; TEMP 36.7; O2SAT 98
--- NOTE | 2023-05-29 00:22 | ED_ITS ---
HPI - Extremity Problem General Chief complaint: Extremity Injury, Upper Stated complaint: left finger inj Time Seen by Provider: 05/29/23 00:03 Source: patient Mode of arrival: ambulatory Limitations: no limitations History of Present Illness HPI Narrative: 23-year-old female presents with acute left middle finger pain. Patient's brother closed her finger in the car door. Immediately thereafter, patient had significant pain. The pain is worse with movement. The pain radiates to her upper arm. There has been redness and swelling. No other injuries are noted. She denies any numbness or tingling. She is unable to flex or extend the distal phalanx. Related Data Allergies Allergy/AdvReac Type Severity Reaction Status Date / Time No Known Allergies Allergy Verified 05/28/23 22:57 Review of Systems Review of Systems: CONSTITUTIONAL: Denies weight loss, fever and chills. HEENT: Denies changes in vision and hearing. RESPIRATORY: Denies SOB and cough. CV: Denies palpitations no CP. GI: Denies abdominal pain, nausea, vomiting and diarrhea. : Denies dysuria and urinary frequency. MSK: + myalgia and joint pain. SKIN: Denies rash and pruritus. NEUROLOGICAL: Denies headache and syncope. PSYCHIATRIC: Denies recent changes in mood. Denies anxiety and depression. All other ROS are negative unless in HPI PMFSH Social History Social History Advance Directives: No Advance Directives Information Provided: Yes Physical Exam Vital Signs: Vital Signs: Last Vital Signs Temp 98.0 F 05/29/23 00:12 Pulse 72 05/29/23 00:12 Resp 16 05/29/23 00:12 BP 106/74 05/29/23 00:12 Pulse Ox 98 05/29/23 00:12 O2 Del Method Room Air 05/29/23 00:12 BMI result Body Mass Index 21.9 GEN: Well developed, no acute distress, alert, oriented HEENT: Normocephalic, atraumatic, normal external ears, nose appears normal Eyes: Normal to appearance Neck: Supple, no lymphadenopathy Respiratory: Talks in complete sentences, no respiratory distress Extremities: No clubbing cyanosis or edema, difficulty finger extending against resistance over the distal phalanx of left middle finger, neurovascularly intact Neurologic: No focal neurologic deficits, cranial nerves 2-12 intact, gait normal Skin: No rash Course Course Course Narrative: Patient presents with acute left middle finger pain. X-ray did not demonstrate any acute fracture. Although patient's flexion extension was limited, doubt tendon rupture. Will refer to Hand surgery. Patient has been instructed to ice, Tylenol and ibuprofen. She can return for any worsening or concerning symptoms. Medical Decision Making Medical Decision Making MDM Narrative: Patient presents with acute finger pain. Differential diagnosis includes fracture, sprain, strain, contusion, tendon rupture. Plan will be to obtain x- ray. Likely will need to splint the patient. Will refer patient to Hand surgery. Independent Interpretation I performed an independent interpretation of an: Plain X-Ray (Left middle finger, no acute traumatic injury) Prescription Management I considered prescription management with: Pain Medication Discharge Plan Discharge Clinical Impression: Contusion of finger Patient Disposition: Home, Self-Care Instructions: Contusion in Adults (ED) Referrals: Giulia Raza MD [Physician] - 5 days
== END 2023-05-29 01:20 | disposition home or self-care (01) ==
PROVIDERS: Emergency Provider Emergency Medicine
DX: S60.032A Contusion of left middle finger without damage to nail, initial encounter (principal); W23.0XXA Caught, crushed, jammed, or pinched between moving objects, initial encounter; Y93.89 Activity, other specified; Y92.810 Car as the place of occurrence of the external cause; Y99.9 Unspecified external cause status
CPT/HCPCS: 73140; 99283

== ENCOUNTER 2023-06-05 08:29 | Outpatient (AMB) | payer OTHER, SELFPAY ==
--- NOTE | 2023-06-05 08:45 | A.OFFVIS_ITS ---
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 Patient's brother closed her finger in the car door. States she felt pain immediately. Seen in ED same day due to pain increase and reported pain worsen with movement. Pain radiates to her hand. There has been redness and swelling that has improved. Currently states her finger has improved, her main concern is sje is experiencing numbness at the tip of her finger. Allergies No Known Allergies Allergy (Verified 06/05/23 08:47) HPI Cnc Specialist- Contusion of finger left HPI Details Yuli is a 23 year old right hand dominant woman who presents with left middle finger pain & numbness. She says her brother closed her finger in a car door by accident on 05/28/23. She was seen in the ED on 05/29/23, placed in a splint, and referred here. She says her pain has improved somewhat since her surgery, however she continues to have pain in her finger that radiates down into her palm. She says she feels a pulling or tightness when trying to extend her finger She also complains of numbness to the tip of her middle finger, which was not present prior to the injury. 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 She says it has been somewhat difficult to work due to her injury as he keep trying to grab her finger splint. [facility] Social History (Updated 06/05/23 @ 08:47 by SEJAL Knight) Current occupational status: employed Current occupation: Nanny/ rt hand Review of Systems Const All systems reviewed & are unremarkable except as noted in HPI and below Physical Exam Vital Signs: BMI result Body Mass Index 21.9 Const General: cooperative, healthy appearing and no acute distress Orientation/consciousness: patient oriented x3 HEENT Head: Yes normocephalic and Yes atraumatic Eyes EOM: EOMs intact bilaterally Resp Effort & Inspection: normal respiratory effort and able to speak in complete sentences Cardio Jugular venous distension: no JVD Skin General skin exam: turgor normal Rashes: no rashes Neuro General: patient oriented x3 Extrem Other: Evaluation of Left Upper Extremity: The patient is alert, oriented, and in no acute distress Neuro: Median, Ulnar, Radial nerves motor and sensory intact and sensation is normal to the tips of all digits Vascular: Cap refill brisk ROM: With encouragement she can bring her fingers closed to a fist and back into full extension. She does feel some tightness in her middle finger when extending No angular or rotational mal-alignment Skin: No lacerations or abrasions. General: Tender directly over tip of distal phalanx No tenderness more proximally over finger Mild swelling and resolving ecchymosis at tip of chikis Nail appears well-affixed, wearing black nail cymraes and it is unclear if she has a subungual hematoma Radiographs: 3 views of the left hand, with attention to the middle finger, from 05/29/23 were reviewed by me today in clinic. They show a middle finger distal phalanx tuft fracture, non-displaced Psych Appearance: grossly normal Affect: normal affect Attitude: cooperative Office Procedures Fracture Care Details: Fracture care 14121 Fracture Billing Code: Fracture Billing Code Assessment & Plan Assessment & Plan (1) Closed fracture of tuft of distal phalanx of left middle finger: Code(s): S62.633A - Displaced fracture of distal phalanx of left middle finger, initial encounter for closed fracture Plan Assessment & Plan: 1. Left middle finger distal phalanx tuft fracture, non-displaced From an injury, DOI: 05/28/23 I educated her about this condition I discussed operative and non-operative treatment options I believe we can manage this non-operatively She was fitted for a finger splint to wear with daily activity for the next few weeks. She may remove this at work, as a nanny, in case her young charge tries to grab at the splint repeatedly. I explained this is not for stability but more to protect her finger from being struck against objects and causing pain I discussed activity modifications, she is to lift nothing heavier than a cellphone for the next two weeks She will perform gentle ROM exercises at home She will follow up in 3-4 weeks for a ROM check, no X-rays unless she has worsening pain Scribed for Giulia Raza MD by Cuate Jameson medical operations supervisor, on 8/22/23 at 9:40 AM, EST. Coding Level of Care Code New Pt Level 3 (97670) Diagnoses Closed fracture of tuft of distal phalanx of left middle finger S62.633A CPT Codes Fracture Care - Fracture Billing Code: Fracture Billing Code ([id number])
[2023-06-05 08:48] VITALS: BMI 21.9
== END 2023-06-05 09:46 | disposition home or self-care (01) ==
PROVIDERS: Visit Provider Orthopaedic Surgery
DX: S62.663A Nondisplaced fracture of distal phalanx of left middle finger, initial encounter for closed fracture (principal)
CPT/HCPCS: 26750; 99204

== ENCOUNTER → 2023-06-05 08:29 | Outpatient (BNVA) | payer OTHER, SELFPAY | PROVIDERS: Visit Provider Orthopaedic Surgery ==

== ENCOUNTER 2023-06-26 15:27 | Outpatient (AMB) | payer OTHER, SELFPAY ==
[2023-06-26 15:48] VITALS: BMI 21.9
--- NOTE | 2023-06-26 15:48 | A.OFFVIS_ITS ---
Intake Vital Signs 06/26/23 15:48 Height 5 ft 2 in Weight 120 lb BMI 21.9 Intake Visit Reasons: OV-LT finger contusion, xray, read comments Intake Note: Yuli 23 yr old right hand dominant female presents today for her follow up visit for her Left middle finger distal phalanx tuft fracture, non-displaced From an injury, DOI: 05/28/23. States she is having no pain, no discomfort. Patient mention she has a different sensation at tip of finger compare to her other fingers. Allergies No Known Allergies Allergy (Verified 06/26/23 15:50) HPI OV-LT finger contusion, xray, read comments HPI Details Yuli Cotter 23-year-old right hand dominant woman who presents today to the office for a follow-up of left middle finger distal phalanx tuft fracture, non-displaced from an injury, DOI: 05/28/23. This has been managed conservatively The patient has noticed significant improvement of left middle finger swelling for past month. She has mild tenderness with heavy activities. She has mild intermittent numbness in her hand. She has been using splint [facility] Social History Current occupational status: employed Current occupation: Nanny/ rt hand Review of Systems Const All systems reviewed & are unremarkable except as noted in HPI and below Physical Exam Vital Signs: BMI result Body Mass Index 21.9 Const General: cooperative, healthy appearing and no acute distress Orientation/consciousness: patient oriented x3 HEENT Head: Yes normocephalic and Yes atraumatic Eyes EOM: EOMs intact bilaterally Resp Effort & Inspection: normal respiratory effort and able to speak in complete sentences Cardio Jugular venous distension: no JVD Skin General skin exam: turgor normal, ecchymosis (No) and erythema (No) Rashes: no rashes Trauma: no lacerations or abrasions Neuro Other: Vascular: Cap refill brisk General: patient oriented x3 Extrem Other: Patient was alert oriented and in no acute distress. Her left middle finger swelling has improved. She can bring all of her fingers including the left middle finger from full extension to a fist and back into full extension with ease. She still has some mild tenderness to palpation at the distal phalanx. She has a subungual hematoma in the central 2/3 of the nail rather longitudinally oriented. It has not yet grown out to the distal edge. No evidence of infection. No angulation or malrotation. No radiographs are obtained today. Psych Appearance: grossly normal Affect: normal affect Attitude: cooperative Assessment & Plan Assessment & Plan (1) Closed fracture of tuft of distal phalanx of left middle finger: Code(s): S62.633A - Displaced fracture of distal phalanx of left middle finger, initial encounter for closed fracture Plan 1. Left middle finger distal phalanx tuft fracture, non-displaced From an injury, DOI: 05/28/23. She appears to be healing very well. Educated about this condition, I talked about the importance of activity modif ication and not doing things that are too heavy. I educated her about the fingernail and the fact that at some point it might get looser and come off, but it will likely grow in. She still has some numbness in the finger, but feels like it is improving. She can follow-up as needed. She is happy with the current plan. Scribed for Dr. Giulia Raza by Tawanda Torres, medical customer service representative, on 06/26/2023. I, Dr. Giulia Raza, have personally reviewed and agree with the information entered by the scribe. Coding Level of Care Code Global (19660) Diagnoses Closed fracture of tuft of distal phalanx of left middle finger S62.633A
== END 2023-06-26 16:38 | disposition home or self-care (01) ==
PROVIDERS: Visit Provider Orthopaedic Surgery
DX: S62.633A Displaced fracture of distal phalanx of left middle finger, initial encounter for closed fracture (principal)
CPT/HCPCS: 99024

== ENCOUNTER → 2023-06-26 15:27 | Outpatient (BNVA) | payer OTHER, SELFPAY | PROVIDERS: Visit Provider Orthopaedic Surgery ==

== ENCOUNTER 2024-06-30 07:37 | Emergency (ER) | payer OTHER, SELFPAY ==
[2024-06-30 07:43] VITALS: BP 134/74; PULSE 102; RESP 20; TEMP 37.2; O2SAT 100; BMI 24.5
[2024-06-30 08:01] LABS: IDNOW Serial# 08D9AD1C; Strep A Nucleic Acid Negative (Negative)
--- NOTE | 2024-06-30 08:14 | ED_ITS ---
HPI - General Adult General Chief complaint: General Medical Stated complaint: Sore Throat Time Seen by Provider: 06/30/24 07:52 Source: patient Mode of arrival: ambulatory Limitations: no limitations History of Present Illness HPI narrative: This is a 24 years old patient presented to the emergency department complaining of sore throat and cough. Denies any fever chills vomiting diarrhea Onset (ago): day(s) (1) Radiation: non-radiation Severity: moderate Quality: burning Pain Consistency: constant Relieving factors: none Exacerbating factors: none Associated symptoms: denies other symptoms Treatments prior to arrival: none Related Data Home Medications ?Medication ?Instructions ?Recorded ?Confirmed medroxyprogesterone 150 mg/mL 150 mg IM [id number] 06/05/23 intramuscular suspension sertraline 25 mg tablet 25 mg PO DAILY 06/05/23 Previous Rx's ?Medication ?Instructions ?Recorded amoxicillin 500 mg capsule 500 mg PO TID #30 caps 06/30/24 prednisone 20 mg tablet 60 mg (3 x 20 mg) PO DAILY #9 tabs 06/30/24 Allergies Allergy/AdvReac Type Severity Reaction Status Date / Time egg Allergy Photosensit Verified 06/30/24 07:46 ivity Review of Systems Constitutional: Constitutional: Reports no additional constitutional complaints Eyes: Eyes: Reports no additional eye complaints ENT: Reports system reviewed and no additional complaints, except as documented Cardiovascular: Cardiovascular: Reports no additional cardiovascular complaints Respiratory: Respiratory: Reports no additional respiratory complaints Gastrointestinal: Gastrointestinal: Reports no additional gastrointestinal complaints Genitourinary: Genitourinary: Reports no additional female genitourinary complaints Musculoskeletal: Musculoskeletal: Reports no additional musculoskeletal complaints Integumentary/Breasts: Skin/Breast: Reports system reviewed and no additional complaints, except as docu Neurologic: Reports system reviewed and no additional complaints, except as documented Psychiatric: Psychiatric: Reports no additional psychiatric complaints PMFSH Past Medical History PMF Narrative: Denies any major medical problems Social History Social History Advance Directives: No Advance Directives Information Provided: No Do you have a plan to hurt others: No Plan Current occupational status: employed Current occupation: Nanny/ rt hand Physical Exam ED Vital Signs: Vital Signs - 24 hr 06/30/24 07:43 06/30/24 08:32 Temperature 98.9 F 98.9 F Pulse Rate 102 H 102 H Respiratory Rate 20 20 Blood Pressure 134/74 134/74 Pulse Oximetry 100 100 Oxygen Delivery Method Room Air Room Air BMI result Body Mass Index 24.5 She looks well she is not toxic-appearing no stridor Const General: cooperative Nutritional Appearance: well nourished Orientation/consciousness: patient oriented x3 Limitations: no limitations HENMT Head: Yes normal to inspection Ears: hearing grossly normal bilaterally General nose exam: Normal external nose present Face and sinus: Yes normal facial exam Mouth: Normal oral and palatal mucosa present, lip normal, tongue normal, oropharynx normal (Redness pharynx no exudate), no muffled voice, no trismus and No restricted motion Throat: Yes uvular edema and Yes other (Uvula is mildly swollen) Neck Neck: Yes normal visual inspection and Yes full ROM Chest Chest palpation & inspection: normal inspection of the chest Resp Effort & Inspection: normal respiratory effort Auscultation: clear to auscultation bilaterally Cardio Jugular venous distension: no JVD Rate: regular rate Rhythm: regular rhythm GI Inspection: Yes normal to inspection Palpation (GI): Soft to palpation Percussion: Yes normal to percussion Skin General skin exam: no rashes or lesions noted and elasticity normal Lesions: no lesions Rashes: no rashes Trauma: no lacerations or abrasions Wounds: no wounds Neuro General: patient oriented x3 Extrem General: Yes normal to inspection and Yes full ROM Medications Administered Discontinued Medications Generic Name Dose Route Start Last Admin Trade Name Freq PRN Reason Stop Dose Admin Ibuprofen 800 mg 06/30/24 08:13 06/30/24 08:29 Ibuprofen 800 Mg Tablet PO 06/30/24 08:14 800 mg ONCE ONE Administration Prednisone 60 mg 06/30/24 08:21 06/30/24 08:29 Prednisone 20 Mg Tablet PO 06/30/24 08:22 60 mg ONCE ONE Administration Medical Decision Making Medical Decision Making MDM Narrative: Patient presented with sore throat will check strep test Differential Diagnosis Differential Diagnoses: The differential diagnosis associated with the presentation includes Strep pharyngitis/viral pharyngitis Admission/Observation Consideration of admission/observation: Escalation of care including admission/observation considered Lab Data [facility] Lab Attestation statement: I reviewed the patient's lab results. Labs: Lab Results 06/30/24 Range/Units 07:49 S. pyogenes GrpA GERARDO Negative (Negative) Discharge Plan Discharge Clinical Impression: Uvulitis Patient Disposition: Home, Self-Care Instructions: Uvulitis (ED) Additional Instructions: Follow-up with your primary care physician return to emergency room if you worse any concern Prescriptions: New prednisone 20 mg tablet 60 mg PO DAILY Qty: 9 0RF amoxicillin 500 mg capsule 500 mg PO TID Qty: 30 0RF No Action medroxyprogesterone 150 mg/mL suspension 150 mg IM [id number] sertraline 25 mg tablet 25 mg PO DAILY Referrals: [facility] [Primary Care Provider] - 3 days Interventions: ED Discharge Assessment Last Done: 06/30/24 08:32 Discharge Date/Time: 06/30/24 08:33 Print Language: [place]
[2024-06-30] MEDS: Ibuprofen 800 MG TABLET PO (08:29)
[2024-06-30] MEDS: predniSONE 20 MG TABLET 60 MG PO (08:29)
[2024-06-30 08:32] VITALS: BP 134/74; PULSE 102; RESP 20; TEMP 37.2; O2SAT 100
== END 2024-06-30 08:33 | disposition home or self-care (01) ==
PROVIDERS: Emergency Provider Emergency Medicine
DX: K12.2 Cellulitis and abscess of mouth (principal); J02.9 Acute pharyngitis, unspecified; R05.9 Cough, unspecified
CPT/HCPCS: 87651; 99283

== ENCOUNTER 2025-01-03 02:25 | Emergency (ER) | payer OTHER, SELFPAY ==
--- NOTE | ~2025-01-03 | CT_ITS ---
CLINICAL HISTORY: fall head strike + LOC CT head without contrast Comparison: None Findings: No intra-axial mass, midline shift, hydrocephalus, or acute hemorrhage. No significant atrophy-like change or white matter disease. There is no sinus or mastoid fluid. The orbits are unremarkable. There is no acute fracture. IMPRESSION: 1. No acute intracranial findings. This document has been electronically signed by: Debra Alvarado MD on 01/03/2025 08:09:04
--- NOTE | ~2025-01-03 | CT_ITS ---
CLINICAL HISTORY: fall neck pain CT cervical spine without contrast Comparison: None Findings: Reversal of the normal cervical lordosis which is likely related to positioning. Vertebral bodies and facets are aligned. No significant degenerative change. No acute fractures or dislocations. No acute findings on limited view of the intracranial contents. Exophytic left thyroid nodule measuring up to 18 mm. No consolidation or effusion at the lung apices. IMPRESSION: No evidence of acute trauma to the cervical spine. Incidental 18 mm left thyroid nodule for which thyroid ultrasound is recommended on a nonemergent basis. This document has been electronically signed by: Debra Alvarado MD on 01/03/2025 08:12:00
--- NOTE | ~2025-01-03 | XR_ITS ---
CLINICAL HISTORY: fall chest trauma 1 view chest x-ray Comparison: None Findings: No consolidation or effusion. Normal size heart. No acute fracture. IMPRESSION: 1. No acute findings. This document has been electronically signed by: Jose Eduardo Tavares MD on 01/03/2025 07:41:33
[2025-01-03 02:27] VITALS: BP 94/56; PULSE 137; RESP 18; TEMP 36.1; O2SAT 100; BMI 25.1
[2025-01-03 03:45] LABS: MANUAL DIFF FLAG NO
[2025-01-03 03:46] LABS: Basophils Percent Auto 0.2 % (0-2); Eosinophils Percent Auto 0.2 % (0-4); Hematocrit 38.7 % (37.0-47.0); Hemoglobin 13.1 g/dl (12.0-16.0); Imm Gran Abs Auto 0.04 X10*3/uL (0.00-0.03); Imm Gran Pct Auto 0.5 % (0.0-0.4); Lymphocytes Absolute Auto 1.9 X10*3/uL (1.2-4.9); Lymphocytes Percent Auto 22.5 % (20-40); Mean Corpuscular HGB Conc 33.9 g/dl (31.0-35.0); Mean Corpuscular Hemoglobin 27.3 pg (27.0-33.0); Mean Corpuscular Volume 80.6 fL (80.0-98.0); Mean Platelet Volume 9.6 fL (9.4-12.3); Monocytes Absolute Auto 0.3 X10*3/uL (0.1-1.2); Monocytes Percent Auto 4.1 % (2-11); Neutrophils Percent Auto 72.5 % (45-73); Platelet Count 262 X10*3/uL (160-400); Red Cell Distribution Width 13.1 % (11.0-16.0); White Blood Count 8.3 X10*3/uL (4.8-10.8)
[2025-01-03 03:47] VITALS: BP 94/56; PULSE 137; RESP 18; TEMP 36.1; O2SAT 100
[2025-01-03 03:57] VITALS: BP 97/62; PULSE 102; RESP 19; TEMP 36.6; O2SAT 100
[2025-01-03 04:12] LABS: Alanine Aminotransferase 35 U/L (0-31); Albumin Level 4.2 g/dL (3.5-5.0); Alkaline Phosphatase 94 U/L (39-117); Anion Gap 15 (12-20); Aspartate Amino Transferase 27 U/L (5-31); Bilirubin Total 0.2 mg/dL (0.0-1.0); Blood Urea Nitrogen 9 mg/dL (9-16); Calcium 8.9 mg/dL (8.4-10.2); Carbon Dioxide 20 mmol/L (22-29); Chloride 109 mmol/L (96-108); Creatinine Clr Calc Pharmacy 100.7; Estimated Glomerular Filt Rate > 60; Ethanol 228 mg/dL; Glucose Random 102 mg/dL (60-115); Potassium 3.4 mmol/L (3.3-5.1); Sodium 141 mmol/L (135-145); Total Protein 7.6 g/dL (6.5-8.0)
[2025-01-03 06:08] VITALS: BP 97/61; PULSE 115; RESP 15; TEMP 36.7; O2SAT 97
--- NOTE | 2025-01-03 08:05 | PC.NURSE ---
verbal order from Jacklyn for tylenol 650mg
[2025-01-03 08:08] VITALS: BP 106/70; PULSE 108; RESP 14; TEMP 37.2; O2SAT 99
[2025-01-03] MEDS: Acetaminophen 325 MG TABLET 650 MG PO (08:27)
--- NOTE | 2025-01-03 08:39 | ED.ALCOHOL ---
HPI - Alcohol General Chief Complaint: ETOH/Substance Use Stated Complaint: ETOH Time Seen by Provider: 01/03/25 06:48 Source: patient and other (Friend) Mode of arrival: ambulatory Limitations: no limitations History of Present Illness ED Provider: JONATHAN Kitchen HPI narrative: This is a 24-year-old female past medical history significant for anxiety, panic attacks, tachycardia who presents to the emergency department status post fall going upstairs, patient reports she fell, hit her head and she thinks she lost consciousness. She reports she was having a few drinks prior to falling. She reports she had approximately 3 drinks prior to having a fall. She reports after she hit her head she did have a few episodes of nausea and vomiting. However that has subsided. She feels okay right now. She does report she sustained a laceration to the right eyebrow. Denies chest pain, shortness of breath, nausea, vomiting, abdominal pain, headache, vision changes, dizziness, weakness. NIH stroke scale 0 Related Data Home Medications ?Medication ?Instructions ?Recorded ?Confirmed medroxyprogesterone 150 mg/mL 150 mg IM [id number] 06/05/23 intramuscular suspension sertraline 25 mg tablet 25 mg PO DAILY 06/05/23 Previous Rx's ?Medication ?Instructions ?Recorded amoxicillin 500 mg capsule 500 mg PO TID #30 caps 06/30/24 prednisone 20 mg tablet 60 mg (3 x 20 mg) PO DAILY #9 tabs 06/30/24 Allergies Allergy/AdvReac Type Severity Reaction Status Date / Time egg Allergy Photosensit Verified 01/03/25 02:37 ivity Review of Systems Review of Systems: Yes all other systems are reviewed and are negative [facility] Past Medical History Attestation statement: The following information was validated with the patient. Source: old records reviewed and nursing notes reviewed Social History Social History Smoked in Last 30 Days: Yes Use of substances other than those prescribed or required for medical reasons: No Advance Directives: No Advance Directives Information Provided: No Current occupational status: employed Current occupation: Nanny/ rt hand Physical Exam ED Vital Signs: Vital Signs - 24 hr 01/03/25 02:27 01/03/25 03:47 01/03/25 03:57 Temperature 96.9 F 96.9 F 97.9 F Pulse Rate 137 H 137 H 102 H Respiratory Rate 18 18 19 Blood Pressure 94/56 L 94/56 L 97/62 Pulse Oximetry 100 100 100 Oxygen Delivery Method Room Air Room Air Room Air 01/03/25 06:08 01/03/25 08:08 Temperature 98.0 F 98.9 F Pulse Rate 115 H 108 H Respiratory Rate 15 14 Blood Pressure 97/61 106/70 Pulse Oximetry 97 99 Oxygen Delivery Method Room Air Room Air BMI result Body Mass Index 25.1 vss Appearance: Alert.? Oriented X3.? No acute distress.? Head: Normocephalic, + small 1 cm lac to lateral aspect of right eyebrow , no step-offs or deformities Eyes: Pupils equal, round and reactive to light.? ENT: Pharynx normal.??External ears normal, TMs normal bilaterally and EAC's normal. No pain with manipulation of external ears bilaterally. Neck: Normal inspection.? Neck supple.? CVS: Normal heart rate and rhythm.? Pulses normal.? Respiratory: No respiratory distress.? Breath sounds normal.? Abdomen: Soft and nontender.? Skin: Skin warm and dry.? Normal skin color.? Normal skin turgor.? Extremities: No lower extremity edema.? No calf ttp. 5/5 strength to bilateral upper and lower extremities Back: No midline tenderness, no C-spine tenderness, full range of motion, no CVA tenderness bilaterally Neuro: Oriented X 3.? No motor deficit.? No sensory deficit. CN 2-12 intact . Negative Romberg and pronator drift. Normal [id number]. Ambulating with steady gait normal coordination Course Reevaluation(s) Reevaluation #1: CBC unremarkable. Chemistry no acute findings needing intervention. Ethanol 228. CT cervical spine no evidence of acute trauma to the cervical spine. Incidental 8 mm left thyroid nodule which thyroid ultrasound is recommended. CT head no acute intracranial findings. Chest x-ray no acute findings. Laceration repaired successfully with Dermabond. Patient tolerated procedure well. Educated patient on diagnosis and treatment plan, answered all question, patient verbalizes understanding. At this time patient will be discharged home, advised to return with new or worsening symptoms. Educated on worrisome signs and symptoms and when to return. At this time I feel comfortable discharge home. Time: 08:48 Medical Decision Making Medical Decision Making MDM Narrative: 24-year-old female presents with fall when walking upstairs with head strike and loss of consciousness. Not on blood thinners. Also reports drinking alcohol. Physical exam small 1 cm laceration to the lateral aspect of right eyebrow. Neurological assessment intact. Regular rate and rhythm. Lungs clear. Abdomen soft nontender nondistended. GCS 15. NIH stroke scale 0 History and physical exam consistent with simple laceration to the lateral aspect of right eyebrow. No signs of complex laceration. No signs of optic nerve palsies. I suspect concussion with loss of consciousness unlikely intracranial hemorrhage, stroke, posterior stroke. Will rule out metabolic derangements. Patient likely intoxicated with alcohol. Polysubstance abuse also in the differential. I did discuss in depth with patient's sutures versus glue, she is agreeable to glue this is a very superficial laceration therefore she should do just fine with healing and glue. Plan at this time will obtain labs, imaging and repair laceration with glue/Dermabond Differential Diagnosis Differential Diagnoses: The differential diagnosis associated with the presentation includes (History and physical exam consistent with simple laceration to the lateral aspect of right eyebrow. No signs of complex laceration. No signs of optic nerve palsies. I suspect concussion with loss of consciousness unlikely intracranial hemorrhage, stroke, posterior stroke. Will rule out metabolic) Admission/Observation Consideration of admission/observation: Escalation of care including admission/observation considered Lab Data MDM Lab Attestation statement: I reviewed the patient's lab results. 01/03/25 03:39 01/03/25 03:39 Labs: Lab Results 01/03/25 Range/Units 03:39 WBC 8.3 (4.8-10.8) X10*3/uL RBC 4.80 (4.20-5.50) X10*6/uL Hgb 13.1 (12.0-16.0) g/dl Hct 38.7 (37.0-47.0) % MCV 80.6 (80.0-98.0) fL MCH 27.3 (27.0-33.0) pg MCHC 33.9 (31.0-35.0) g/dl RDW 13.1 (11.0-16.0) % Plt Count 262 (160-400) X10*3/uL MPV 9.6 (9.4-12.3) fL Immature Gran % (Auto) 0.5 H (0.0-0.4) % Neut % (Auto) 72.5 (45-73) % Lymph % (Auto) 22.5 (20-40) % [place] % (Auto) 4.1 (2-11) % Eos % (Auto) 0.2 (0-4) % Baso % (Auto) 0.2 (0-2) % Lymph # (Auto) 1.9 (1.2-4.9) X10*3/uL [place] # (Auto) 0.3 (0.1-1.2) X10*3/uL Eos # (Auto) 0.0 (0.0-0.4) X10*3/uL Baso # (Auto) 0.0 (0.0-0.2) X10*3/uL Abs Immat Gran (auto) 0.04 H (0.00-0.03) X10*3/uL Absolute Neuts (auto) 6.0 (2.0-8.3) x10*3/uL Absolute Nucleated RBC 0.000 (0.0-0.012) X10*3/uL Nucleated RBC % (auto) 0.0 (0.0-0.2) /100WBC Sodium 141 (135-145) mmol/L Potassium 3.4 (3.3-5.1) mmol/L Chloride 109 H (96-108) mmol/L Carbon Dioxide 20 L (22-29) mmol/L Anion Gap 15 (12-20) BUN 9 (9-16) mg/dL Creatinine 0.74 (0.5-1.4) mg/dL Estim Creat Clear Calc 100.7 Estimated GFR > 60 Random Glucose 102 (60-115) mg/dL Calcium 8.9 (8.4-10.2) mg/dL Total Bilirubin 0.2 (0.0-1.0) mg/dL AST 27 (5-31) U/L ALT 35 H (0-31) U/L Alkaline Phosphatase 94 (39-117) U/L Total Protein 7.6 (6.5-8.0) g/dL Albumin 4.2 (3.5-5.0) g/dL Ethyl Alcohol 228 mg/dL Independent Interpretation I performed an independent interpretation of an: EKG (IMPRESSION: 1. No acute findings.) and CT Scan (IMPRESSION: No evidence of acute trauma to the cervical spine. Incidental 18 mm left thyroid nodule for which thyroid ultrasound is recommended on a nonemergent basis.) Interpretation: IMPRESSION: 1. No acute intracranial findings. Radiology Impression Discussion of test interpretation with radiology: I have reviewed the radiologist's reading. External Record Review External record reviewed: Inpatient record, Office record, Outpatient record, Prior outpatient labs, Prior outpatient radiology and Outside ED record Chronic Conditions Patient?s care impacted by: Other (see hpi ) Medications Administered Discontinued Medications Generic Name Dose Route Start Last Admin Trade Name [place] PRN Reason Stop Dose Admin Acetaminophen 650 mg 01/03/25 08:06 01/03/25 08:27 Acetaminophen 325 Mg Tablet PO 01/03/25 08:07 650 mg ONCE ONE Administration Critical Care Time Critical Care Time Critical Care Time: No Discharge Plan Discharge Clinical Impression: Alcoholic intoxication, Concussion, Forehead laceration, Left thyroid nodule Patient Disposition: Home, Self-Care Instructions: Laceration (ED), Concussion (ED), Alcohol Intoxication (ED), Abuse of Alcohol (ED), Post Concussion Syndrome (ED), Skin Adhesive Care (ED), Laceration Without Closure (ED) Additional Instructions: Take your medications as prescribed. If you were prescribed antibiotics today, it is important that you take your medication to their entirety, do not skip any doses, do not finish them early. Follow-up with your primary care provider this week. Return to the emergency department with new or worsening symptoms. Such as fevers, chills, chest pain, shortness of breath, nausea, vomiting, dizziness, headache, vision changes, lethargy In case of emergency call 911 Please read the handout on post concussive syndrome if any of these symptoms arise you should seek medical attention immediately. Please allow the Dermabond or glue to fall off of the laceration. Do not pick it off. You were noted to have an 18 mm left thyroid nodule, thyroid ultrasound is recommended, please speak to a primary care provider about this. Our endocrinology. CT head without contrast Comparison: None Findings: No intra-axial mass, midline shift, hydrocephalus, or acute hemorrhage. No significant atrophy-like change or white matter disease. There is no sinus or mastoid fluid. The orbits are unremarkable. There is no acute fracture. IMPRESSION: 1. No acute intracranial findings. CT cervical spine without contrast Comparison: None Findings: Reversal of the normal cervical lordosis which is likely related to positioning. Vertebral bodies and facets are aligned. No significant degenerative change. No acute fractures or dislocations. No acute findings on limited view of the intracranial contents. Exophytic left thyroid nodule measuring up to 18 mm. No consolidation or effusion at the lung apices. IMPRESSION: No evidence of acute trauma to the cervical spine. Incidental 18 mm left thyroid nodule for which thyroid ultrasound is recommended on a nonemergent basis. Chest Xray Findings: No consolidation or effusion. Normal size heart. No acute fracture. IMPRESSION: 1. No acute findings. Prescriptions: No Action prednisone 20 mg tablet 60 mg PO DAILY Qty: 9 0RF amoxicillin 500 mg capsule 500 mg PO TID Qty: 30 0RF medroxyprogesterone 150 mg/mL suspension 150 mg IM [id number] sertraline 25 mg tablet 25 mg PO DAILY Referrals: Physician,Unknown J [Primary Care Provider] - 2 days Stand Alone Forms: Work/School Release Print Language: [place]
[2025-01-03 08:58] VITALS: BP 106/70; PULSE 108; RESP 14; TEMP 37.2; O2SAT 99
== END 2025-01-03 08:58 | disposition home or self-care (01) ==
PROVIDERS: Emergency Provider Emergency Medicine
DX: S01.111A Laceration without foreign body of right eyelid and periocular area, initial encounter (principal); W10.8XXA Fall (on) (from) other stairs and steps, initial encounter; R29.700 NIHSS score 0; Y93.89 Activity, other specified; Y92.038 Other place in apartment as the place of occurrence of the external cause; Y99.9 Unspecified external cause status
CPT/HCPCS: 12011; 36415; 70450; 71045; 72125; 80053; 80307; 85025; 99284

== ENCOUNTER → 2025-01-03 07:16 | Outpatient (BNV) | payer OTHER, SELFPAY | PROVIDERS: Emergency Provider Emergency Medicine; Visit Provider Specialist | DX: S01.81XA Laceration without foreign body of other part of head, initial encounter (principal); R11.2 Nausea with vomiting, unspecified; S06.0XAA Concussion with loss of consciousness status unknown, initial encounter | CPT/HCPCS: 70450; 71045; 72125 ==